=== PATIENT | female | born 1940 | race Caucasian/White ===

== ENCOUNTER 2018-12-14 04:08 | Inpatient (IN) | payer MEDICARE, MEDICAID ==
[~2018-12-14] VITALS: Ht 152.4 cm; Wt 87.5 kg
[2018-12-14] MEDS ORDERED: IPRATROPIUM BROMIDE (0.02%) 0.5MG/2.5ML NEB HHN STA (06:55)
[2018-12-14] MEDS ORDERED: ALBUTEROL (0.083%) 2.5MG/3ML NEB HHN STA (06:55)
[2018-12-14] MEDS ORDERED: METHYLPREDNISOLONE SOD SUCC 125 MG/2 ML VIAL IV STA (06:55)
[2018-12-14] MEDS ORDERED: NITROGLYCERIN OINT 1GM/INCH UDPKT TD ONE (07:00)
[2018-12-14] MEDS ORDERED: FUROSEMIDE 40MG/4ML VIAL IV ONE (07:00)
[2018-12-14 07:12] LABS: EOSINOPHILS % 0.3 % (0.0-5.0); HEMATOCRIT. 28.7 % (36.0-48.0); HEMOGLOBIN. 9.4 g/dL (12.0-16.0); MEAN CORPUSCULAR HEMOGLOBIN 28.8 pg (28.0-32.0); MEAN CORPUSCULAR VOLUME 87.9 fL (81.0-99.0); MEAN PLATELET VOLUME 7.6 fl (7.4-10.4); MONOCYTES % 5.1 % (2.0-8.0); NEUTROPHILS % 83.6 % (40.0-76.0); PLATELET 493 x1000/uL (130-400); RED BLOOD CELL COUNT 3.27 mill/uL (4.2-5.4); RED CELL DISTRIBUTION WIDTH 16.8 % (11.6-14.6)
[2018-12-14 07:13] LABS: CHLORIDE 102 mEq/L (98-107)
[2018-12-14 07:16] LABS: INR 1.1; PROTHROMBIN TIME 11.3 sec (9.6-11.0)
[2018-12-14] MEDS ORDERED: POTASSIUM CHLORIDE 20MEQ TABLET SR PO ONE (07:45)
[2018-12-14] MEDS ORDERED: ONDANSETRON HCL 4MG/2ML INJ IV PRN (09:30)
[2018-12-14] MEDS ORDERED: DEXTROSE 50% WATER 50ML SYRINGE IV PRN (09:30)
[2018-12-14] MEDS ORDERED: ACETAMINOPHEN 325MG TABLET PO PRN (09:30)
[2018-12-14 10:18] LABS: CLARITY URINE CLOUDY (CLEAR); COLOR URINE YELLOW (YELLOW); KETONES URINE NEGATIVE (NEGATIVE); LEUKOCYTE ESTERASE URINE NEGATIVE (NEGATIVE); NITRITE URINE NEGATIVE (NEGATIVE); OCCULT BLOOD URINE 1+ (NEGATIVE); PH URINE 7.5 (4.5-8.0); PROTEIN URINE 4+ (NEGATIVE); SPECIFIC GRAVITY URINE 1.017 (1.005-1.030)
[2018-12-14 12:00] VITALS: BP_SYST 117; BP_SYST 143; BP_DIAS 50; BP_DIAS 84
[2018-12-14] MEDS: BLOOD SUGAR DIAGNOSTIC STRIP TEST SCH ×3 (12:20→21:17)
[2018-12-14] MEDS: INSULIN LISPRO 100 UNITS/ML SUBCUT SCH ×3 (14:00→21:16)
[2018-12-14] MEDS: ENOXAPARIN 40MG/0.4ML SYR SUBCUT SCH (14:32)
[2018-12-14] MEDS: LOSARTAN POTASSIUM 50 MG TABLET PO SCH (14:32)
[2018-12-14] MEDS: FUROSEMIDE 40MG/4ML VIAL IVP SCH ×2 (14:32→17:40)
[2018-12-14 16:00] VITALS: BP 183/75
[2018-12-14] MEDS ORDERED: METF-414 PO (17:01)
[2018-12-14] MEDS ORDERED: LISI10TA5 PO (17:02)
[2018-12-14 20:00] VITALS: BP 177/70
[2018-12-14] MEDS: CLONIDINE 0.1MG TABLET PO PRN (21:17)
[2018-12-15] VITALS: BP 162/71
[2018-12-15] MEDS: IPRATROPIUM/ALBUTEROL 0.5-3(2.5)MG/3ML NEB HHN PRN ×3 (03:55→12:22)
[2018-12-15 04:00] VITALS: BP 187/82
[2018-12-15] MEDS: BLOOD SUGAR DIAGNOSTIC STRIP TEST SCH ×4 (06:17→21:34)
[2018-12-15] MEDS: INSULIN LISPRO 100 UNITS/ML SUBCUT SCH ×4 (06:24→21:53)
[2018-12-15] MEDS: CLONIDINE 0.1MG TABLET PO PRN (06:24)
[2018-12-15] MEDS: FUROSEMIDE 40MG/4ML VIAL IVP SCH (06:43)
[2018-12-15 06:58] LABS: BASOPHILS % 0.2 % (0.0-2.0); HEMATOCRIT. 25.1 % (36.0-48.0); HEMOGLOBIN. 8.4 g/dL (12.0-16.0); LYMPHOCYTES % 7.1 % (20.0-50.0); MEAN CORPUSCULAR HEMOGLOBIN 29.3 pg (28.0-32.0); MEAN CORPUSCULAR VOLUME 87.4 fL (81.0-99.0); MEAN PLATELET VOLUME 7.8 fl (7.4-10.4); MONOCYTES % 5.4 % (2.0-8.0); NEUTROPHILS % 87.3 % (40.0-76.0); PLATELET 450 x1000/uL (130-400); RED BLOOD CELL COUNT 2.87 mill/uL (4.2-5.4); RED CELL DISTRIBUTION WIDTH 16.9 % (11.6-14.6)
[2018-12-15 07:29] LABS: CHLORIDE 102 mEq/L (98-107)
[2018-12-15 08:00] VITALS: BP 129/58
[2018-12-15] MEDS: POTASSIUM CHLORIDE 20MEQ TABLET SR PO SCH (08:28)
[2018-12-15] MEDS: LOSARTAN POTASSIUM 50 MG TABLET PO SCH ×2 (08:28→17:36)
[2018-12-15] MEDS ORDERED: POTASSIUM CHLORIDE 20MEQ TABLET SR PO SCH (10:45)
[2018-12-15 12:00] VITALS: BP 168/63
[2018-12-15] MEDS ORDERED: CEFTRIAXONE 1 G PREMIX 50 ML IV SCH (13:00)
[2018-12-15] MEDS: METHYLPREDNISOLONE SOD SUCC 40 MG/ML VIAL IV SCH ×2 (14:35→21:33)
[2018-12-15] MEDS: ENOXAPARIN 40MG/0.4ML SYR SUBCUT SCH (14:36)
[2018-12-15 16:00] VITALS: BP 158/62
[2018-12-15] MEDS: IPRATROPIUM/ALBUTEROL 0.5-3(2.5)MG/3ML NEB HHN SCH ×2 (16:28→20:13)
[2018-12-15] MEDS: AMLODIPINE 5MG TABLET PO SCH (17:36)
[2018-12-15 20:00] VITALS: BP 157/73
[2018-12-15] MEDS: INSULIN GLARGINE UD 100 UNITS/ML SYR SUBCUT SCH (21:55)
[2018-12-16] VITALS: BP 153/68
[2018-12-16] MEDS: IPRATROPIUM/ALBUTEROL 0.5-3(2.5)MG/3ML NEB HHN SCH ×4 (00:31→12:55)
[2018-12-16 04:00] VITALS: BP 157/62
[2018-12-16] MEDS: METHYLPREDNISOLONE SOD SUCC 40 MG/ML VIAL IV SCH (05:49)
[2018-12-16] MEDS: BLOOD SUGAR DIAGNOSTIC STRIP TEST SCH ×2 (06:43→12:20)
[2018-12-16 06:49] LABS: CHLORIDE 101 mEq/L (98-107)
[2018-12-16 06:53] LABS: HEMATOCRIT. 24.6 % (36.0-48.0); HEMOGLOBIN. 8.3 g/dL (12.0-16.0); MEAN CORPUSCULAR HEMOGLOBIN 29.5 pg (28.0-32.0); MEAN CORPUSCULAR VOLUME 87.7 fL (81.0-99.0); MEAN PLATELET VOLUME 7.6 fl (7.4-10.4); PLATELET 481 x1000/uL (130-400); RED BLOOD CELL COUNT 2.81 mill/uL (4.2-5.4); RED CELL DISTRIBUTION WIDTH 16.7 % (11.6-14.6)
[2018-12-16 08:52] VITALS: BP 164/69
[2018-12-16] MEDS ORDERED: FUROSEMIDE 40MG/4ML VIAL IVP SCH (09:00)
[2018-12-16] MEDS: POTASSIUM CHLORIDE 20MEQ TABLET SR PO SCH (09:50)
[2018-12-16] MEDS: LOSARTAN POTASSIUM 50 MG TABLET PO SCH (09:50)
[2018-12-16] MEDS: AMLODIPINE 5MG TABLET PO SCH (09:50)
[2018-12-16] MEDS: INSULIN LISPRO 100 UNITS/ML SUBCUT SCH ×2 (09:51→13:12)
[2018-12-16 12:37] VITALS: BP 160/71
[2018-12-16 12:38] VITALS: BP 160/71
[2018-12-16] MEDS ORDERED: POTASSIUM CHLORIDE 20MEQ TABLET SR PO NR (13:00)
[2018-12-16] MEDS: INSULIN GLARGINE UD 100 UNITS/ML SYR SUBCUT SCH (13:11)
[2018-12-16 19:21] LABS: PLATELET ESTIMATE INCREASED
== END 2018-12-16 14:46 | disposition home or self-care (01) | DRG 871 ==
LOC: ER 04:08 → EDBEDREQ 07:53 → EDBD 07:55 → 6WST 07:55 → EDBEDREQ 07:58 → ENRESERV 09:46
PROVIDERS: ADMIT Internal Medicine; ATTEND Internal Medicine
DX: A41.9 Sepsis, unspecified organism (principal); E43 Unspecified severe protein-calorie malnutrition; I50.43 Acute on chronic combined systolic (congestive) and diastolic (congestive) heart failure; E87.1 Hypo-osmolality and hyponatremia; N39.0 Urinary tract infection, site not specified; I11.0 Hypertensive heart disease with heart failure; E87.6 Hypokalemia; E11.9 Type 2 diabetes mellitus without complications; D64.9 Anemia, unspecified; R06.03 Acute respiratory distress; B96.89 Other specified bacterial agents as the cause of diseases classified elsewhere; E66.9 Obesity, unspecified; J06.9 Acute upper respiratory infection, unspecified; Z79.4 Long term (current) use of insulin; Z87.442 Personal history of urinary calculi; Z79.899 Other long term (current) drug therapy; Z91.14 Patient's other noncompliance with medication regimen; Z68.37 Body mass index [BMI] 37.0-37.9, adult
CPT/HCPCS: 36415; 71045; 80048; 80061; 82962; 83605; 83880; 84443; 84484; 87077; 87186; 93005; 93306; 94640; 96374; 96375; 97162; 97535; 99285; J0696; J1650; J1815; J1940; J2920; J2930; J7050; J7611; J7620

== ENCOUNTER 2020-08-18 03:32 | Inpatient (IN) | payer MEDICARE, MEDICAID ==
[~2020-08-18] VITALS: Ht 157.5 cm; Wt 65.8 kg
[~2020-08-18 03:32] MED LIST: METF-414 PO
[2020-08-18] MEDS ORDERED: ONDANSETRON HCL 4MG/2ML INJ IV ONE (04:15)
[2020-08-18] MEDS ORDERED: CALCIUM GLUCONATE 100MG/ML 10ML VIAL IV ONE (04:15)
[2020-08-18 04:30] LABS: BASOPHILS % 0.8 % (0.0-2.0); EOSINOPHILS % 3.3 % (0.0-5.0); HEMATOCRIT. 21.3 % (36.0-48.0); HEMOGLOBIN. 7.1 g/dL (12.0-16.0); LYMPHOCYTES % 43.1 % (20.0-50.0); MONOCYTES % 6.9 % (2.0-8.0); NEUTROPHILS % 45.9 % (40.0-76.0); PLATELET 277 x1000/uL (130-400); RED BLOOD CELL COUNT 2.45 mill/uL (4.2-5.4); RED CELL DISTRIBUTION WIDTH 14.6 % (11.6-14.6)
[2020-08-18 04:32] LABS: CHLORIDE 107 mEq/L (98-107)
[2020-08-18] MEDS ORDERED: LOSA100T3 PO (09:11)
[2020-08-18] MEDS ORDERED: SITA1TAB6 PO (09:11)
[2020-08-18] MEDS ORDERED: SIMV-46 PO (09:11)
[2020-08-18] MEDS ORDERED: LISI10TA5 PO (09:11)
[2020-08-18] MEDS ORDERED: NEBI20TA2 PO (09:11)
[2020-08-18] MEDS ORDERED: GLIP10TA10 PO (09:11)
[2020-08-18] MEDS ORDERED: FURO-151 PO (09:11)
[2020-08-18] MEDS ORDERED: SODIUM CHLORIDE 0.45% 1,000 ML IV SCH (11:00)
[2020-08-18] MEDS ORDERED: DIPHENHYDRAMINE 50MG/ML VIAL IV PRN (11:00)
[2020-08-18] MEDS ORDERED: MAGNESIUM/ALUMINUM HYDROXIDE/SIMETHICONE 30ML UDC PO PRN (11:00)
[2020-08-18] MEDS ORDERED: ACETAMINOPHEN 650MG SUPP PR PRN (11:00)
[2020-08-18] MEDS ORDERED: ACETAMINOPHEN 325MG TABLET PO PRN (11:00)
[2020-08-18] MEDS ORDERED: IPRATROPIUM/ALBUTEROL 0.5-3(2.5)MG/3ML NEB NEB PRN (11:00)
[2020-08-18] MEDS ORDERED: CLONIDINE 0.1MG TABLET PO PRN (11:00)
[2020-08-18] MEDS ORDERED: DOCUSATE SODIUM 100MG CAPSULE PO PRN (11:00)
[2020-08-18] MEDS ORDERED: GUAIFENESIN 200MG/10ML SUGAR FREE UDC PO PRN (11:00)
[2020-08-18] MEDS ORDERED: NA PHOS,M-B/NA PHOS,DI-BA ENEMA 118ML PR PRN (11:00)
[2020-08-18] MEDS ORDERED: DEXTROSE 50% WATER 50ML SYRINGE IV PRN (11:00)
[2020-08-18] MEDS ORDERED: LORAZEPAM 0.5MG TABLET PO PRN (11:00)
[2020-08-18] MEDS ORDERED: HYDROCODONE/ACETAMINOPHEN 5/325MG TABLET PO PRN (11:00)
[2020-08-18] MEDS ORDERED: ONDANSETRON HCL 4MG/2ML INJ IV PRN (11:00)
[2020-08-18] MEDS: PANTOPRAZOLE SODIUM 40 MG/VIAL IV SCH (12:00)
[2020-08-18 12:44] LABS: HEMATOCRIT 20.6 % (36.0-48.0); HEMOGLOBIN 6.6 g/dL (12.0-16.0)
[2020-08-18] MEDS: BLOOD SUGAR DIAGNOSTIC STRIP TEST SCH ×3 (13:40→21:00)
[2020-08-18] MEDS: INSULIN LISPRO 100 UNITS/ML SUBCUT SCH ×3 (13:56→21:00)
[2020-08-18] MEDS: DEXT 5%/0.45% NACL 1000ML 1,000 ML IV SCH (14:00)
[2020-08-18 14:38] LABS: TOTAL IRON BINDING CAPACITY 355 ug/dL (250-450)
[2020-08-18] MEDS: LOSARTAN POTASSIUM 50 MG TABLET PO SCH (16:43)
[2020-08-18] MEDS: FUROSEMIDE 40MG/4ML VIAL IVP SCH (16:43)
[2020-08-18 17:41] LABS: BASOPHILS % 0.6 % (0.0-2.0); EOSINOPHILS % 1.9 % (0.0-5.0); HEMATOCRIT. 24.3 % (36.0-48.0); MEAN CORPUSCULAR HEMOGLOBIN 27.9 pg (28.0-32.0); MEAN CORPUSCULAR VOLUME 84.3 fL (81.0-99.0); MEAN PLATELET VOLUME 8.5 fl (7.4-10.4); NEUTROPHILS % 62.5 % (40.0-76.0); PLATELET 260 x1000/uL (130-400); RED BLOOD CELL COUNT 2.88 mill/uL (4.2-5.4); RED CELL DISTRIBUTION WIDTH 15.9 % (11.6-14.6)
[2020-08-18 20:47] LABS: HEMATOCRIT 24.8 % (36.0-48.0); HEMOGLOBIN 8.5 g/dL (12.0-16.0)
[2020-08-18] MEDS: ATORVASTATIN CALCIUM 20MG TABLET PO SCH (21:00)
[2020-08-18 23:04] LABS: HEMATOCRIT 24.8 % (36.0-48.0); HEMOGLOBIN 8.4 g/dL (12.0-16.0)
[2020-08-19] VITALS (11 sets, daily range): BP systolic 115–186; BP diastolic 40–69
[2020-08-19] MEDS: HYDRALAZINE 20MG/ML VIAL IV PRN ×2 (01:34→21:36)
[2020-08-19] MEDS: DEXT 5%/0.45% NACL 1000ML 1,000 ML IV SCH ×2 (05:55→21:50)
[2020-08-19] MEDS: INSULIN LISPRO 100 UNITS/ML SUBCUT SCH ×4 (06:43→21:00)
[2020-08-19] MEDS: BLOOD SUGAR DIAGNOSTIC STRIP TEST SCH ×4 (06:43→21:37)
[2020-08-19 07:10] LABS: BASOPHILS % 0.8 % (0.0-2.0); EOSINOPHILS % 3.2 % (0.0-5.0); HEMATOCRIT. 22.3 % (36.0-48.0); HEMOGLOBIN. 7.5 g/dL (12.0-16.0); LYMPHOCYTES % 31.2 % (20.0-50.0); MEAN CORPUSCULAR HEMOGLOBIN 28.1 pg (28.0-32.0); MEAN CORPUSCULAR VOLUME 83.2 fL (81.0-99.0); MEAN PLATELET VOLUME 9.1 fl (7.4-10.4); MONOCYTES % 7.7 % (2.0-8.0); NEUTROPHILS % 57.1 % (40.0-76.0); PLATELET 247 x1000/uL (130-400); RED BLOOD CELL COUNT 2.68 mill/uL (4.2-5.4); RED CELL DISTRIBUTION WIDTH 16.3 % (11.6-14.6)
[2020-08-19 07:22] LABS: CHLORIDE 110 mEq/L (98-107)
[2020-08-19 07:31] LABS: LDL CHOLESTEROL 50 mg/dL (5-100)
[2020-08-19 07:32] LABS: T4 FREE 0.97 ng/dL (0.76-1.46)
[2020-08-19 07:35] LABS: HDL CHOLESTEROL 61 mg/dL (40-59)
[2020-08-19] MEDS: PANTOPRAZOLE SODIUM 40 MG/VIAL IV SCH ×2 (08:34→21:36)
[2020-08-19] MEDS: FUROSEMIDE 40MG/4ML VIAL IVP SCH (08:34)
[2020-08-19] MEDS: LOSARTAN POTASSIUM 50 MG TABLET PO SCH (08:35)
[2020-08-19] MEDS ORDERED: LOSARTAN POTASSIUM 50 MG TABLET PO SCH (10:00)
[2020-08-19] MEDS: AMLODIPINE 5MG TABLET PO SCH (10:00)
[2020-08-19] MEDS: IRON SUCROSE COMPLEX 100 MG/5 ML ML IV SCH (15:47)
[2020-08-19] MEDS ORDERED: SORBITOL 70% SOLN 30ML PO SCH ×2 (16:00→20:00)
[2020-08-19] MEDS ORDERED: CEFTRIAXONE 1,000 MG in DEXTROSE 5% WATER 50 ML IV SCH (19:00)
[2020-08-19 19:32] LABS: HEMATOCRIT 33.9 % (36.0-48.0); HEMOGLOBIN 11.3 g/dL (12.0-16.0)
[2020-08-19 19:46] LABS: PROTHROMBIN TIME 10.6 sec (9.6-11.0)
[2020-08-19] MEDS: ATORVASTATIN CALCIUM 20MG TABLET PO SCH (21:36)
[2020-08-20] VITALS: BP 111/31
[2020-08-20 04:00] VITALS: BP 111/34
[2020-08-20] MEDS: BLOOD SUGAR DIAGNOSTIC STRIP TEST SCH ×4 (06:20→21:00)
[2020-08-20] MEDS: INSULIN LISPRO 100 UNITS/ML SUBCUT SCH ×4 (06:20→21:00)
[2020-08-20 08:00] VITALS: BP 130/77
[2020-08-20 08:33] LABS: CLARITY URINE CLOUDY (CLEAR); COLOR URINE YELLOW (YELLOW); KETONES URINE NEGATIVE (NEGATIVE); LEUKOCYTE ESTERASE URINE 2+ (NEGATIVE); NITRITE URINE NEGATIVE (NEGATIVE); OCCULT BLOOD URINE NEGATIVE (NEGATIVE); PROTEIN URINE 3+ (NEGATIVE); SPECIFIC GRAVITY URINE 1.019 (1.005-1.030); UROBILINOGEN URINE 0.2 E.U./dL (0.2-1.0)
[2020-08-20] MEDS: IRON SUCROSE COMPLEX 100 MG/5 ML ML IV SCH (09:00)
[2020-08-20] MEDS: AMLODIPINE 5MG TABLET PO SCH (09:00)
[2020-08-20] MEDS: FUROSEMIDE 40MG/4ML VIAL IVP SCH (09:54)
[2020-08-20] MEDS: PANTOPRAZOLE SODIUM 40 MG/VIAL IV SCH ×2 (09:55→22:17)
[2020-08-20 11:35] LABS: BASOPHILS % 0.8 % (0.0-2.0); EOSINOPHILS % 0.8 % (0.0-5.0); HEMATOCRIT. 31.4 % (36.0-48.0); HEMOGLOBIN. 10.5 g/dL (12.0-16.0); LYMPHOCYTES % 24.6 % (20.0-50.0); MEAN CORPUSCULAR HEMOGLOBIN 28.6 pg (28.0-32.0); MEAN CORPUSCULAR VOLUME 85.3 fL (81.0-99.0); MEAN PLATELET VOLUME 9.3 fl (7.4-10.4); MONOCYTES % 7.3 % (2.0-8.0); NEUTROPHILS % 66.5 % (40.0-76.0); PLATELET 253 x1000/uL (130-400); RED BLOOD CELL COUNT 3.68 mill/uL (4.2-5.4); RED CELL DISTRIBUTION WIDTH 15.8 % (11.6-14.6)
[2020-08-20 11:39] LABS: PARTIAL THROMBOPLASTIN TIME 32.3 sec (23.4-31.0); PROTHROMBIN TIME 10.7 sec (9.6-11.0)
[2020-08-20] MEDS ORDERED: FENTANYL CITRATE/PF 50MCG/ML 2ML VIAL ONE (11:48)
[2020-08-20] MEDS ORDERED: MIDAZOLAM HCL 5 MG/5 ML VIAL ONE (11:48)
[2020-08-20] MEDS ORDERED: MIDAZOLAM HCL 5 MG/5 ML VIAL IV PRN (11:48)
[2020-08-20 15:00] VITALS: BP 150/58
[2020-08-20] MEDS: DEXTROSE 5% WATER 1,000 ML IV SCH (16:15)
[2020-08-20 17:26] LABS: CHLORIDE 116 mEq/L (98-107)
[2020-08-20 17:34] LABS: HEMATOCRIT 29.3 % (36.0-48.0); HEMOGLOBIN 9.9 g/dL (12.0-16.0); MEAN CORPUSCULAR HEMOGLOBIN 28.7 pg (28.0-32.0); MEAN CORPUSCULAR VOLUME 85.3 fL (81.0-99.0); PLATELET 249 x1000/uL (130-400); RED BLOOD CELL COUNT 3.44 mill/uL (4.2-5.4)
[2020-08-20 20:00] VITALS: BP 163/49
[2020-08-20] MEDS ORDERED: CEFTRIAXONE 1,000 MG in DEXTROSE 5% WATER 50 ML IV SCH (21:00)
[2020-08-20] MEDS: HYDRALAZINE 20MG/ML VIAL IV PRN (22:17)
[2020-08-20] MEDS: ATORVASTATIN CALCIUM 20MG TABLET PO SCH (22:17)
[2020-08-21] VITALS: BP 142/42
[2020-08-21 04:00] VITALS: BP 123/56
[2020-08-21] MEDS: BLOOD SUGAR DIAGNOSTIC STRIP TEST SCH ×2 (06:27→11:45)
[2020-08-21] MEDS: INSULIN LISPRO 100 UNITS/ML SUBCUT SCH ×2 (06:29→14:40)
[2020-08-21 06:48] LABS: BASOPHILS % 0.6 % (0.0-2.0); EOSINOPHILS % 3.1 % (0.0-5.0); HEMATOCRIT. 27.9 % (36.0-48.0); HEMOGLOBIN. 9.5 g/dL (12.0-16.0); LYMPHOCYTES % 29.8 % (20.0-50.0); MEAN CORPUSCULAR HEMOGLOBIN 29.1 pg (28.0-32.0); MEAN CORPUSCULAR VOLUME 84.9 fL (81.0-99.0); MEAN PLATELET VOLUME 9.2 fl (7.4-10.4); MONOCYTES % 10.8 % (2.0-8.0); NEUTROPHILS % 55.7 % (40.0-76.0); PLATELET 226 x1000/uL (130-400); RED BLOOD CELL COUNT 3.28 mill/uL (4.2-5.4); RED CELL DISTRIBUTION WIDTH 15.6 % (11.6-14.6)
[2020-08-21 08:00] VITALS: BP 154/45
[2020-08-21] MEDS: IRON SUCROSE COMPLEX 100 MG/5 ML ML IV SCH (10:10)
[2020-08-21] MEDS: AMLODIPINE 5MG TABLET PO SCH (10:11)
[2020-08-21] MEDS: FUROSEMIDE 40MG/4ML VIAL IVP SCH (10:11)
[2020-08-21] MEDS: PANTOPRAZOLE SODIUM 40 MG/VIAL IV SCH (10:11)
[2020-08-21] MEDS: DEXTROSE 5% WATER 1,000 ML IV SCH (10:11)
[2020-08-21 12:00] VITALS: BP 161/57
[2020-08-21] MEDS ORDERED: CEPH250C2 MT (14:55)
[2020-08-21 15:10] VITALS: BP 161/57
== END 2020-08-21 16:34 | disposition home or self-care (01) | DRG 73 ==
LOC: ER 03:32 → SUPCPDRO 10:48 → ENRESERV 20:39 → 5WST 08-19 00:25
PROVIDERS: ADMIT Internal Medicine; ATTEND Internal Medicine
PROC: 30233N1 Transfusion of Nonautologous Red Blood Cells into Peripheral Vein, Percutaneous Approach (ICD-10-PCS; principal; 2020-08-19)
PROC: 0DB68ZX Excision of Stomach, Via Natural or Artificial Opening Endoscopic, Diagnostic (ICD-10-PCS; 2020-08-20)
PROC: 0DBK8ZX Excision of Ascending Colon, Via Natural or Artificial Opening Endoscopic, Diagnostic (ICD-10-PCS; 2020-08-20)
DX: G90.8 Other disorders of autonomic nervous system (principal); K29.71 Gastritis, unspecified, with bleeding; K63.3 Ulcer of intestine; N39.0 Urinary tract infection, site not specified; I50.32 Chronic diastolic (congestive) heart failure; N17.9 Acute kidney failure, unspecified; E11.65 Type 2 diabetes mellitus with hyperglycemia; E11.649 Type 2 diabetes mellitus with hypoglycemia without coma; D12.5 Benign neoplasm of sigmoid colon; E86.0 Dehydration; I11.0 Hypertensive heart disease with heart failure; K64.8 Other hemorrhoids; K44.9 Diaphragmatic hernia without obstruction or gangrene; D50.9 Iron deficiency anemia, unspecified; E78.5 Hyperlipidemia, unspecified; I25.10 Atherosclerotic heart disease of native coronary artery without angina pectoris; M43.17 Spondylolisthesis, lumbosacral region; R00.1 Bradycardia, unspecified; K80.20 Calculus of gallbladder without cholecystitis without obstruction; I35.0 Nonrheumatic aortic (valve) stenosis; I34.0 Nonrheumatic mitral (valve) insufficiency; Z79.84 Long term (current) use of oral hypoglycemic drugs; Z79.899 Other long term (current) drug therapy; Z87.442 Personal history of urinary calculi; R19.09 Other intra-abdominal and pelvic swelling, mass and lump
CPT/HCPCS: 36415; 71045; 74176; 80048; 80053; 80061; 81003; 82378; 82728; 82962; 83036; 83540; 83550; 83735; 83880; 84439; 84443; 84484; 85014; 85018; 85025; 85027; 85044; 85384; 86850; 86900; 86920; 87077; 87186; 87426; 88305; 88313; 93005; 93306; 93880; 93970; 97116; 97162; 99152; 99291; C9113; J0360; J0610; J0696; J1815; J1940; J2250; J2405; J3010; J7060; J7070; P9016; G0500

== ENCOUNTER 2020-09-05 07:08 | Inpatient (IN) | payer MEDICARE, MEDICAID ==
[~2020-09-05] VITALS: Ht 165.1 cm; Wt 77.7 kg
[~2020-09-05 07:08] MED LIST changes: +CEPH250C2 MT; +FURO-151 PO; +GLIP10TA10 PO; +LOSA100T3 PO; +NEBI20TA2 PO; +SIMV-46 PO; +SITA1TAB6 PO
[2020-09-05 08:22] LABS: CHLORIDE 108 mEq/L (98-107)
[2020-09-05 08:27] LABS: CLARITY URINE CLEAR (CLEAR); COLOR URINE YELLOW (YELLOW); KETONES URINE NEGATIVE (NEGATIVE); LEUKOCYTE ESTERASE URINE 1+ (NEGATIVE); NITRITE URINE NEGATIVE (NEGATIVE); OCCULT BLOOD URINE TRACE (NEGATIVE); PROTEIN URINE 3+ (NEGATIVE); SPECIFIC GRAVITY URINE 1.012 (1.005-1.030); UROBILINOGEN URINE 0.2 E.U./dL (0.2-1.0)
[2020-09-05 08:40] LABS: BASOPHILS % 0.5 % (0.0-2.0); EOSINOPHILS % 0.8 % (0.0-5.0); HEMATOCRIT. 27.5 % (36.0-48.0); LYMPHOCYTES % 14.4 % (20.0-50.0); MEAN CORPUSCULAR HEMOGLOBIN 28.4 pg (28.0-32.0); MEAN CORPUSCULAR VOLUME 86.6 fL (81.0-99.0); MEAN PLATELET VOLUME 9.1 fl (7.4-10.4); MONOCYTES % 7.2 % (2.0-8.0); NEUTROPHILS % 77.1 % (40.0-76.0); PLATELET 211 x1000/uL (130-400); RED BLOOD CELL COUNT 3.17 mill/uL (4.2-5.4); RED CELL DISTRIBUTION WIDTH 16.3 % (11.6-14.6)
[2020-09-05] MEDS ORDERED: CEFTRIAXONE 1 G PREMIX 50 ML IV ONE (09:00)
[2020-09-05] MEDS ORDERED: DEXT 5%/0.9% NACL 500 ML IV ONE (10:30)
[2020-09-05] MEDS: NIFEDIPINE XL 30MG TAB PO SCH (14:48)
[2020-09-05] MEDS ORDERED: ACETAMINOPHEN 650MG/20.3ML UDC GT PRN (16:00)
[2020-09-05] MEDS ORDERED: ONDANSETRON HCL 4MG/2ML INJ IV PRN (16:00)
[2020-09-05] MEDS: LISINOPRIL 10MG TABLET PO SCH (16:34)
[2020-09-05] MEDS: ENOXAPARIN 30MG/0.3ML SYR SUBCUT SCH (16:35)
[2020-09-05] MEDS: ATORVASTATIN CALCIUM 20MG TABLET PO SCH (21:15)
[2020-09-06 00:30] LABS: CREATINE KINASE 92 IU/L (26-192)
[2020-09-06 00:31] LABS: CREATINE KINASE MB FRACTION 1.5 ng/mL (0.5-3.6)
[2020-09-06 03:05] VITALS: BP 96/68
[2020-09-06 06:15] LABS: BASOPHILS % 0.8 % (0.0-2.0); EOSINOPHILS % 1.4 % (0.0-5.0); HEMATOCRIT. 25.6 % (36.0-48.0); HEMOGLOBIN. 8.6 g/dL (12.0-16.0); LYMPHOCYTES % 38.5 % (20.0-50.0); MEAN CORPUSCULAR HEMOGLOBIN 29.2 pg (28.0-32.0); MEAN CORPUSCULAR VOLUME 86.6 fL (81.0-99.0); MEAN PLATELET VOLUME 9.5 fl (7.4-10.4); MONOCYTES % 10.1 % (2.0-8.0); NEUTROPHILS % 49.2 % (40.0-76.0); PLATELET 201 x1000/uL (130-400); RED BLOOD CELL COUNT 2.95 mill/uL (4.2-5.4); RED CELL DISTRIBUTION WIDTH 16.4 % (11.6-14.6)
[2020-09-06 07:26] LABS: CHLORIDE 110 mEq/L (98-107)
[2020-09-06 07:35] LABS: CREATINE KINASE 95 IU/L (26-192)
[2020-09-06 07:37] LABS: CREATINE KINASE MB FRACTION 1.8 ng/mL (0.5-3.6)
[2020-09-06 08:00] VITALS: BP 111/39
[2020-09-06] MEDS: LISINOPRIL 10MG TABLET PO SCH (09:00)
[2020-09-06] MEDS: NIFEDIPINE XL 30MG TAB PO SCH (09:00)
[2020-09-06] MEDS ORDERED: CEFTRIAXONE 1 G PREMIX 50 ML IV SCH (09:00)
[2020-09-06] MEDS: CEFTRIAXONE 1,000 MG in DEXTROSE 5% WATER 50 ML IV SCH (09:39)
[2020-09-06 12:00] VITALS: BP 128/78
[2020-09-06 16:00] VITALS: BP 160/54
[2020-09-06] MEDS: ENOXAPARIN 30MG/0.3ML SYR SUBCUT SCH (18:35)
[2020-09-06 20:00] VITALS: BP 148/66
[2020-09-06] MEDS: ATORVASTATIN CALCIUM 20MG TABLET PO SCH (21:46)
[2020-09-07] VITALS: BP 138/60
[2020-09-07 04:00] VITALS: BP 155/80
[2020-09-07 08:00] VITALS: BP 137/38
[2020-09-07] MEDS: NIFEDIPINE XL 30MG TAB PO SCH (08:07)
[2020-09-07] MEDS: CEFTRIAXONE 1,000 MG in DEXTROSE 5% WATER 50 ML IV SCH (08:29)
[2020-09-07] MEDS ORDERED: LIDOCAINE HCL/PF 1% 2ML VIAL ONE (10:00)
[2020-09-07] MEDS ORDERED: DEXTROSE 50% WATER 50ML SYRINGE IV PRN (10:45)
[2020-09-07] MEDS: BLOOD SUGAR DIAGNOSTIC STRIP TEST SCH ×3 (11:40→20:59)
[2020-09-07 12:00] VITALS: BP 137/42
[2020-09-07] MEDS: INSULIN LISPRO 100 UNITS/ML SUBCUT SCH ×3 (12:00→20:59)
[2020-09-07 12:37] LABS: BG BASE EXCESS -4.3 mmol/L (-2.0-2.0); BG CARBOXYHEMOGLOBIN 0.3 % (0.5-1.5); BG DEOXYHEMOGLOBIN 4.5 % (0.0-5.0); BG FRACTION INSPIRED OXYGEN 21; BG HCO3 ACT 19.8 mmol/L (22.0-26.0); BG METHEMOGLOBIN 0.7 % (0.0-1.5); BG OXYGEN SATURATION 95.5 % (92.0-98.5); BG OXYHEMOGLOBIN 94.5 % (94.0-97.0); BG PCO2 30.6 mmHg (35.0-45.0); BG PH 7.428 (7.350-7.450); BG PO2 84.8 mmHg (75.0-100.0); BG SAMPLE SITE RIGHT RADIAL; BG TOTAL HEMOGLOBIN 5.4 g/dL (12.0-18.0); BG VENT MODE ROOM AIR
[2020-09-07 13:35] LABS: HEMATOCRIT 27.3 % (36.0-48.0); HEMOGLOBIN 9.1 g/dL (12.0-16.0)
[2020-09-07] MEDS: ENOXAPARIN 30MG/0.3ML SYR SUBCUT SCH (15:37)
[2020-09-07 16:00] VITALS: BP 124/50
[2020-09-07 20:00] VITALS: BP 152/53
[2020-09-07] MEDS: ATORVASTATIN CALCIUM 20MG TABLET PO SCH (20:59)
[2020-09-07] MEDS ORDERED: LEVOFLOXACIN 500MG PREMIX 100 ML IV NR (23:00)
[2020-09-08] VITALS: BP 140/77
[2020-09-08 04:00] VITALS: BP 140/66
[2020-09-08] MEDS: BLOOD SUGAR DIAGNOSTIC STRIP TEST SCH ×2 (06:45→11:40)
[2020-09-08 07:05] LABS: BASOPHILS % 0.5 % (0.0-2.0); EOSINOPHILS % 1.2 % (0.0-5.0); HEMATOCRIT. 24.9 % (36.0-48.0); HEMOGLOBIN. 8.4 g/dL (12.0-16.0); LYMPHOCYTES % 32.9 % (20.0-50.0); MEAN CORPUSCULAR HEMOGLOBIN 29.2 pg (28.0-32.0); MEAN CORPUSCULAR VOLUME 86.7 fL (81.0-99.0); MEAN PLATELET VOLUME 9.6 fl (7.4-10.4); MONOCYTES % 9.6 % (2.0-8.0); NEUTROPHILS % 55.8 % (40.0-76.0); PLATELET 204 x1000/uL (130-400); RED BLOOD CELL COUNT 2.87 mill/uL (4.2-5.4); RED CELL DISTRIBUTION WIDTH 16.4 % (11.6-14.6)
[2020-09-08] MEDS: INSULIN LISPRO 100 UNITS/ML SUBCUT SCH ×4 (07:10→22:31)
[2020-09-08 08:00] VITALS: BP 115/38
[2020-09-08] MEDS: NIFEDIPINE XL 30MG TAB PO SCH (08:41)
[2020-09-08 12:00] VITALS: BP 116/45
[2020-09-08 16:00] VITALS: BP 150/38
[2020-09-08] MEDS: ENOXAPARIN 30MG/0.3ML SYR SUBCUT SCH (16:30)
[2020-09-08] MEDS ORDERED: MEROPENEM 500 MG in SODIUM CHLORIDE 0.9% 50 ML IV SCH (17:45)
[2020-09-08 20:00] VITALS: BP 120/34
[2020-09-08] MEDS ORDERED: LEVOFLOXACIN 250MG PREMIX 50 ML IV SCH (21:00)
[2020-09-08] MEDS: MEROPENEM 500MG in NORMAL SALINE 50ML IV SCH (22:31)
[2020-09-08] MEDS: ATORVASTATIN CALCIUM 20MG TABLET PO SCH (22:31)
[2020-09-09 00:09] VITALS: BP 149/51
[2020-09-09 04:00] VITALS: BP 148/53
[2020-09-09] MEDS: INSULIN LISPRO 100 UNITS/ML SUBCUT SCH ×3 (07:10→17:10)
[2020-09-09 07:21] LABS: BASOPHILS % 0.5 % (0.0-2.0); EOSINOPHILS % 0.6 % (0.0-5.0); HEMOGLOBIN. 8.5 g/dL (12.0-16.0); LYMPHOCYTES % 31.7 % (20.0-50.0); MEAN CORPUSCULAR HEMOGLOBIN 28.9 pg (28.0-32.0); MEAN CORPUSCULAR VOLUME 87.7 fL (81.0-99.0); MEAN PLATELET VOLUME 9.5 fl (7.4-10.4); MONOCYTES % 9.1 % (2.0-8.0); NEUTROPHILS % 58.1 % (40.0-76.0); PLATELET 193 x1000/uL (130-400); RED BLOOD CELL COUNT 2.96 mill/uL (4.2-5.4); RED CELL DISTRIBUTION WIDTH 16.5 % (11.6-14.6)
[2020-09-09 08:00] VITALS: BP 164/56
[2020-09-09] MEDS: NIFEDIPINE XL 30MG TAB PO SCH (09:14)
[2020-09-09 12:00] VITALS: BP 158/49
[2020-09-09] MEDS ORDERED: LIDOCAINE HCL 1% 20ML VIAL (Pyxis) INJ ONE (12:56)
[2020-09-09] MEDS: MEROPENEM 500MG in NORMAL SALINE 50ML IV SCH (14:53)
[2020-09-09] MEDS: ENOXAPARIN 30MG/0.3ML SYR SUBCUT SCH (15:43)
[2020-09-09 16:00] VITALS: BP 132/60
[2020-09-09 17:37] VITALS: BP 130/49
[2020-09-09] MEDS ORDERED: HYDRALAZINE HCL 25MG TABLET PO SCH (22:00)
== END 2020-09-09 18:59 | DRG 177 ==
LOC: ER 07:14 → MICUSO 12:07 → ENRESERV 19:15 → CANRESERV 19:15 → 7EST 09-06 01:33
PROVIDERS: ADMIT Internal Medicine; ATTEND Internal Medicine
PROC: 05HY33Z Insertion of Infusion Device into Upper Vein, Percutaneous Approach (ICD-10-PCS; principal; 2020-09-09)
PROC: B54NZZA Ultrasonography of Left Upper Extremity Veins, Guidance (ICD-10-PCS; 2020-09-09)
DX: U07.1 COVID-19 (principal); G93.41 Metabolic encephalopathy; I13.0 Hypertensive heart and chronic kidney disease with heart failure and stage 1 through stage 4 chronic kidney disease, or unspecified chronic kidney disease; I50.32 Chronic diastolic (congestive) heart failure; N17.9 Acute kidney failure, unspecified; N39.0 Urinary tract infection, site not specified; D64.9 Anemia, unspecified; E11.22 Type 2 diabetes mellitus with diabetic chronic kidney disease; T50.995A Adverse effect of other drugs, medicaments and biological substances, initial encounter; E78.5 Hyperlipidemia, unspecified; E11.649 Type 2 diabetes mellitus with hypoglycemia without coma; B96.5 Pseudomonas (aeruginosa) (mallei) (pseudomallei) as the cause of diseases classified elsewhere; I35.0 Nonrheumatic aortic (valve) stenosis; I34.0 Nonrheumatic mitral (valve) insufficiency; N18.9 Chronic kidney disease, unspecified; Z85.038 Personal history of other malignant neoplasm of large intestine; Z87.442 Personal history of urinary calculi; Z79.84 Long term (current) use of oral hypoglycemic drugs; Z79.899 Other long term (current) drug therapy; Y92.89 Other specified places as the place of occurrence of the external cause
CPT/HCPCS: 36415; 36600; 71045; 76937; 80048; 80053; 81003; 82375; 82550; 82553; 82728; 82805; 82947; 82962; 83036; 83735; 84484; 85014; 85018; 85025; 85379; 86140; 87077; 87186; 87426; 87635; 93005; 93970; 96365; 99285; C1725; C1893; J0696; J1650; J1815; J1956; J2185; J3490; J7042; J7060

== ENCOUNTER 2020-11-23 02:31 | Inpatient (IN) | payer MEDICARE, MEDICAID ==
[~2020-11-23] VITALS: Ht 152.4 cm; Wt 73.0 kg
[~2020-11-23 02:31] MED LIST changes: -CEPH250C2 MT; -NEBI20TA2 PO
[2020-11-23] MEDS ORDERED: DEXTROSE 5% WATER 1,000 ML IV ONE (03:15)
[2020-11-23 03:51] LABS: BASOPHILS % 0.9 % (0.0-2.0); EOSINOPHILS % 3.4 % (0.0-5.0); HEMATOCRIT. 33.4 % (36.0-48.0); HEMOGLOBIN. 10.9 g/dL (12.0-16.0); LYMPHOCYTES % 25.8 % (20.0-50.0); MEAN CORPUSCULAR HEMOGLOBIN 29.2 pg (28.0-32.0); MEAN CORPUSCULAR VOLUME 89.3 fL (81.0-99.0); MEAN PLATELET VOLUME 8.4 fl (7.4-10.4); MONOCYTES % 6.3 % (2.0-8.0); NEUTROPHILS % 63.6 % (40.0-76.0); PLATELET 348 x1000/uL (130-400); RED BLOOD CELL COUNT 3.74 mill/uL (4.2-5.4); RED CELL DISTRIBUTION WIDTH 16.8 % (11.6-14.6)
[2020-11-23 03:55] LABS: CHLORIDE 108 mEq/L (98-107)
[2020-11-23 04:01] LABS: CLARITY URINE CLEAR (CLEAR); COLOR URINE YELLOW (YELLOW); KETONES URINE NEGATIVE (NEGATIVE); LEUKOCYTE ESTERASE URINE TRACE (NEGATIVE); NITRITE URINE NEGATIVE (NEGATIVE); OCCULT BLOOD URINE TRACE (NEGATIVE); PH URINE 6.5 (4.5-8.0); PROTEIN URINE 3+ (NEGATIVE); SPECIFIC GRAVITY URINE 1.008 (1.005-1.030); UROBILINOGEN URINE 0.2 E.U./dL (0.2-1.0)
[2020-11-23] MEDS ORDERED: AMLODIPINE 5MG TABLET PO SCH (06:15)
[2020-11-23] MEDS ORDERED: HYDRALAZINE 20MG/ML VIAL IV PRN (09:15)
[2020-11-23 11:00] VITALS: BP 168/62
[2020-11-23 11:15] VITALS: BP 168/62
[2020-11-23] MEDS ORDERED: ONDANSETRON HCL 4MG/2ML INJ IV PRN (11:15)
[2020-11-23] MEDS ORDERED: LOSARTAN POTASSIUM 50 MG TABLET PO SCH (11:15)
[2020-11-23] MEDS ORDERED: ACETAMINOPHEN 325MG TABLET PO PRN (11:15)
[2020-11-23] MEDS: BLOOD SUGAR DIAGNOSTIC STRIP TEST SCH ×3 (12:22→21:00)
[2020-11-23 16:00] VITALS: BP 145/44
[2020-11-23] MEDS ORDERED: DEXTROSE 50% WATER 50ML SYRINGE IV PRN (17:30)
[2020-11-23] MEDS ORDERED: HYDRALAZINE HCL 100MG TABLET PO NR (17:30)
[2020-11-23] MEDS: GABAPENTIN 300MG CAPSULE PO SCH (17:31)
[2020-11-23] MEDS: LOSARTAN POTASSIUM 50 MG TABLET PO SCH (17:32)
[2020-11-23 20:00] VITALS: BP 100/47
[2020-11-23] MEDS ORDERED: ENOXAPARIN 30MG/0.3ML SYR SUBCUT SCH (20:00)
[2020-11-23] MEDS: AMLODIPINE 5MG TABLET PO SCH (21:00)
[2020-11-23] MEDS: INSULIN LISPRO 100 UNITS/ML SUBCUT SCH (21:29)
[2020-11-24] VITALS: BP 160/39
[2020-11-24 04:00] VITALS: BP 126/38
[2020-11-24] MEDS: BLOOD SUGAR DIAGNOSTIC STRIP TEST SCH (06:37)
[2020-11-24] MEDS: INSULIN LISPRO 100 UNITS/ML SUBCUT SCH (06:37)
[2020-11-24 08:00] VITALS: BP 136/50
[2020-11-24] MEDS ORDERED: HYDR100T26 PO (08:17)
[2020-11-24] MEDS ORDERED: HYDRALAZINE HCL 100MG TABLET PO SCH (09:00)
[2020-11-24] MEDS ORDERED: ENOXAPARIN 40MG/0.4ML SYR SUBCUT SCH (09:00)
[2020-11-24] MEDS: LOSARTAN POTASSIUM 50 MG TABLET PO SCH (09:07)
[2020-11-24] MEDS: AMLODIPINE 5MG TABLET PO SCH (09:07)
[2020-11-24] MEDS: GABAPENTIN 300MG CAPSULE PO SCH (09:07)
[2020-11-24 09:53] VITALS: BP 136/50
== END 2020-11-24 11:00 | disposition home or self-care (01) | DRG 637 ==
LOC: ER 02:31 → 5WST 05:09 → ENRESERV 07:59
PROVIDERS: ADMIT Internal Medicine; ATTEND Internal Medicine
DX: E11.649 Type 2 diabetes mellitus with hypoglycemia without coma (principal); G93.41 Metabolic encephalopathy; E44.0 Moderate protein-calorie malnutrition; E78.00 Pure hypercholesterolemia, unspecified; I16.0 Hypertensive urgency; D64.9 Anemia, unspecified; E87.8 Other disorders of electrolyte and fluid balance, not elsewhere classified; E78.5 Hyperlipidemia, unspecified; Z79.84 Long term (current) use of oral hypoglycemic drugs; Z79.899 Other long term (current) drug therapy; Z68.31 Body mass index [BMI] 31.0-31.9, adult; I10 Essential (primary) hypertension
CPT/HCPCS: 36415; 71045; 80053; 81003; 82962; 84484; 85025; 97161; 99285; J0360; J1650; J1815; J7070

== ENCOUNTER 2021-08-29 08:11 | Inpatient (IN) | payer MEDICARE, MEDICAID ==
[~2021-08-29] VITALS: Ht 322.6 cm; Wt 71.7 kg
[~2021-08-29 08:11] MED LIST changes: -GLIP10TA10 PO; +HYDR100T26 PO
[2021-08-29 08:43] LABS: BASOPHILS % 0.8 % (0.0-2.0); EOSINOPHILS % 3.6 % (0.0-5.0); HEMATOCRIT. 27.4 % (36.0-48.0); HEMOGLOBIN. 9.2 g/dL (12.0-16.0); LYMPHOCYTES % 23.5 % (20.0-50.0); MEAN CORPUSCULAR HEMOGLOBIN 30.3 pg (28.0-32.0); MEAN CORPUSCULAR VOLUME 90.1 fL (81.0-99.0); MEAN PLATELET VOLUME 8.8 fl (7.4-10.4); MONOCYTES % 8.9 % (2.0-8.0); NEUTROPHILS % 63.2 % (40.0-76.0); PLATELET 268 x1000/uL (130-400); RED BLOOD CELL COUNT 3.04 mill/uL (4.2-5.4); RED CELL DISTRIBUTION WIDTH 13.9 % (11.6-14.6)
[2021-08-29 08:50] LABS: CHLORIDE 113 mEq/L (98-107)
[2021-08-29] MEDS ORDERED: ACETAMINOPHEN 325MG TABLET PO ONE (09:00)
[2021-08-29] MEDS ORDERED: IPRATROPIUM/ALBUTEROL 0.5-3(2.5)MG/3ML NEB NEB PRN (11:15)
[2021-08-29] MEDS ORDERED: GUAIFENESIN 200MG/10ML SUGAR FREE UDC PO PRN (11:15)
[2021-08-29] MEDS ORDERED: ONDANSETRON HCL 4MG/2ML INJ IV PRN (11:15)
[2021-08-29] MEDS ORDERED: ACETAMINOPHEN 650MG SUPP PR PRN (11:15)
[2021-08-29] MEDS ORDERED: DOCUSATE SODIUM 100MG CAPSULE PO PRN (11:15)
[2021-08-29] MEDS ORDERED: HYDROCODONE/ACETAMINOPHEN 5/325MG TABLET PO PRN (11:15)
[2021-08-29] MEDS ORDERED: NA PHOS,M-B/NA PHOS,DI-BA ENEMA 118ML PR PRN (11:15)
[2021-08-29] MEDS ORDERED: DIPHENHYDRAMINE 50MG/ML VIAL IV PRN (11:15)
[2021-08-29] MEDS ORDERED: ACETAMINOPHEN 325MG TABLET PO PRN (11:15)
[2021-08-29] MEDS ORDERED: MAGNESIUM/ALUMINUM HYDROXIDE/SIMETHICONE 30ML UDC PO PRN (11:15)
[2021-08-29] MEDS ORDERED: LORAZEPAM 0.5MG TABLET PO PRN (11:15)
[2021-08-29] MEDS ORDERED: DEXTROSE 50% WATER 50ML SYRINGE IV PRN (13:15)
[2021-08-29] MEDS: INSULIN LISPRO 100 UNITS/ML SUBCUT SCH ×3 (13:20→21:40)
[2021-08-29] MEDS: BLOOD SUGAR DIAGNOSTIC STRIP TEST SCH ×3 (13:30→21:40)
[2021-08-29 20:37] LABS: PROTHROMBIN TIME 11.1 sec (9.6-11.0)
[2021-08-29] MEDS: AMLODIPINE 5MG TABLET PO SCH (22:00)
[2021-08-29] MEDS: FAMOTIDINE 20MG TABLET PO SCH (22:38)
[2021-08-30] MEDS: DEXAMETHASONE 4MG/ML 1ML VIAL IV SCH ×4 (00:36→18:57)
[2021-08-30 05:24] LABS: BASOPHILS % 0.7 % (0.0-2.0); EOSINOPHILS % 0.2 % (0.0-5.0); HEMATOCRIT. 26.4 % (36.0-48.0); LYMPHOCYTES % 11.4 % (20.0-50.0); MEAN CORPUSCULAR HEMOGLOBIN 30.6 pg (28.0-32.0); MEAN CORPUSCULAR VOLUME 90.2 fL (81.0-99.0); MEAN PLATELET VOLUME 8.6 fl (7.4-10.4); MONOCYTES % 0.8 % (2.0-8.0); NEUTROPHILS % 86.9 % (40.0-76.0); PLATELET 252 x1000/uL (130-400); RED BLOOD CELL COUNT 2.93 mill/uL (4.2-5.4); RED CELL DISTRIBUTION WIDTH 14.2 % (11.6-14.6)
[2021-08-30 05:31] LABS: CHLORIDE 112 mEq/L (98-107)
[2021-08-30] MEDS: BLOOD SUGAR DIAGNOSTIC STRIP TEST SCH ×4 (07:54→20:18)
[2021-08-30] MEDS: AMLODIPINE 5MG TABLET PO SCH ×2 (08:02→20:18)
[2021-08-30] MEDS: INSULIN LISPRO 100 UNITS/ML SUBCUT SCH ×4 (08:29→20:42)
[2021-08-30] MEDS ORDERED: NALOXONE HCL 0.4MG/ML VIAL IV PRN (10:15)
[2021-08-30 10:46] VITALS: BP 159/76
[2021-08-30 12:00] VITALS: BP 160/82
[2021-08-30] MEDS: DEXT 5%/0.45% NACL 1000ML 1,000 ML IV SCH (14:30)
[2021-08-30 16:00] VITALS: BP 160/80
[2021-08-30 17:38] VITALS: BP 153/69
[2021-08-30 20:00] VITALS: BP 179/82
[2021-08-30] MEDS: FAMOTIDINE 20MG TABLET PO SCH (20:17)
[2021-08-30 22:26] LABS: CLARITY URINE CLOUDY (CLEAR); COLOR URINE YELLOW (YELLOW); KETONES URINE NEGATIVE (NEGATIVE); LEUKOCYTE ESTERASE URINE 2+ (NEGATIVE); NITRITE URINE NEGATIVE (NEGATIVE); OCCULT BLOOD URINE TRACE (NEGATIVE); PROTEIN URINE 3+ (NEGATIVE); SPECIFIC GRAVITY URINE 1.015 (1.005-1.030); UROBILINOGEN URINE 0.2 E.U./dL (0.2-1.0)
[2021-08-31] VITALS (7 sets, daily range): BP systolic 155–183; BP diastolic 64–91
[2021-08-31] MEDS: DEXAMETHASONE 4MG/ML 1ML VIAL IV SCH ×2 (00:01→05:17)
[2021-08-31] MEDS: CLONIDINE 0.1MG TABLET PO PRN ×2 (00:02→09:15)
[2021-08-31] MEDS: HYDRALAZINE HCL 25MG TABLET PO SCH ×3 (05:17→18:34)
[2021-08-31] MEDS: DEXT 5%/0.45% NACL 1000ML 1,000 ML IV SCH (06:30)
[2021-08-31] MEDS: BLOOD SUGAR DIAGNOSTIC STRIP TEST SCH ×3 (06:31→18:16)
[2021-08-31 08:10] LABS: BASOPHILS % 0.1 % (0.0-2.0); HEMATOCRIT. 23.9 % (36.0-48.0); HEMOGLOBIN. 8.4 g/dL (12.0-16.0); MEAN CORPUSCULAR HEMOGLOBIN 31.1 pg (28.0-32.0); MEAN CORPUSCULAR VOLUME 88.6 fL (81.0-99.0); MONOCYTES % 2.3 % (2.0-8.0); NEUTROPHILS % 84.6 % (40.0-76.0); PLATELET 238 x1000/uL (130-400); RED CELL DISTRIBUTION WIDTH 13.7 % (11.6-14.6)
[2021-08-31] MEDS: INSULIN LISPRO 100 UNITS/ML SUBCUT SCH ×2 (08:39→13:00)
[2021-08-31] MEDS: AMLODIPINE 5MG TABLET PO SCH (09:11)
[2021-08-31] MEDS ORDERED: CEFTRIAXONE 1 G PREMIX 50 ML IV SCH (10:45)
[2021-08-31] MEDS ORDERED: CEFTRIAXONE 1,000 MG in DEXTROSE 5% WATER 50 ML IV SCH (13:00)
[2021-08-31] MEDS ORDERED: DEXA2TAB PO (14:12)
[2021-08-31] MEDS ORDERED: INSULIN LISPRO 100 UNITS/ML SUBCUT SCH (17:50)
== END 2021-08-31 20:39 | disposition home health service (06) | DRG 551 ==
LOC: ER 08:25 → MICUSO 11:01 → EDBEDREQSVC 14:51 → 6EST 08-30 10:08
PROVIDERS: ADMIT Internal Medicine; ATTEND Internal Medicine
DX: M48.02 Spinal stenosis, cervical region (principal); G82.50 Quadriplegia, unspecified; G99.2 Myelopathy in diseases classified elsewhere; G95.20 Unspecified cord compression; R29.6 Repeated falls; E78.5 Hyperlipidemia, unspecified; D64.9 Anemia, unspecified; E11.22 Type 2 diabetes mellitus with diabetic chronic kidney disease; M53.2X7 Spinal instabilities, lumbosacral region; N18.9 Chronic kidney disease, unspecified; I08.0 Rheumatic disorders of both mitral and aortic valves; M54.16 Radiculopathy, lumbar region; M48.061 Spinal stenosis, lumbar region without neurogenic claudication; Z20.822 Contact with and (suspected) exposure to COVID-19; Z53.29 Procedure and treatment not carried out because of patient's decision for other reasons; I13.10 Hypertensive heart and chronic kidney disease without heart failure, with stage 1 through stage 4 chronic kidney disease, or unspecified chronic kidney disease; E78.00 Pure hypercholesterolemia, unspecified; Z79.899 Other long term (current) drug therapy; Z87.442 Personal history of urinary calculi
CPT/HCPCS: 36415; 71045; 72141; 72148; 80048; 80053; 81003; 82962; 83605; 83735; 84145; 84443; 84484; 85025; 86850; 86900; 87077; 87186; 87426; 93005; 93306; 93970; 97162; 99285; J0696; J1100; J1815; J7060

== ENCOUNTER 2022-03-22 15:11 | Inpatient (IN) | payer MEDICARE, MEDICAID ==
[~2022-03-22] VITALS: Ht 157.5 cm; Wt 81.6 kg
[~2022-03-22 15:11] MED LIST changes: +DEXA2TAB PO
[2022-03-22] MEDS ORDERED: MORPHINE SULFATE 4 MG/ML CPJ (NOT FOR IM USE) IV STA (16:58)
[2022-03-22] MEDS ORDERED: ACETAMINOPHEN 325MG TABLET PO STA (16:58)
[2022-03-22] MEDS ORDERED: SODIUM CHLORIDE 0.9% 1000ML BAG (SEPSIS BOLUS) IV ONE (17:00)
[2022-03-22] MEDS ORDERED: VANCOMYCIN 1G PREMIX 200 ML IV ONE (17:00)
[2022-03-22] MEDS ORDERED: PIPERACILLIN/TAZ 3.375G PREMIX 50 ML IV ONE (17:00)
[2022-03-22 18:53] LABS: HEMATOCRIT. 27.9 % (36.0-48.0); HEMOGLOBIN. 9.3 g/dL (12.0-16.0); MEAN CORPUSCULAR HEMOGLOBIN 29.2 pg (28.0-32.0); MEAN CORPUSCULAR VOLUME 87.3 fL (81.0-99.0); MEAN PLATELET VOLUME 8.3 fl (7.4-10.4); PLATELET 353 x1000/uL (130-400); RED CELL DISTRIBUTION WIDTH 16.1 % (11.6-14.6)
[2022-03-22 19:04] LABS: CHLORIDE 102 mEq/L (98-107)
[2022-03-22 19:30] LABS: CLARITY URINE CLOUDY (CLEAR); COLOR URINE YELLOW (YELLOW); KETONES URINE NEGATIVE (NEGATIVE); LEUKOCYTE ESTERASE URINE 1+ (NEGATIVE); NITRITE URINE NEGATIVE (NEGATIVE); OCCULT BLOOD URINE NEGATIVE (NEGATIVE); PH URINE 7.5 (4.5-8.0); PROTEIN URINE 2+ (NEGATIVE); UROBILINOGEN URINE 0.2 E.U./dL (0.2-1.0)
[2022-03-22 19:53] LABS: PLATELET ESTIMATE NORMAL
[2022-03-22] MEDS ORDERED: KETOROLAC 15MG/ML VIAL IV NR (20:30)
[2022-03-23] VITALS: BP 110/50
[2022-03-23] MEDS ORDERED: ONDANSETRON HCL 4MG/2ML INJ IV PRN (02:30)
[2022-03-23] MEDS ORDERED: DEXTROSE 50% WATER 50ML SYRINGE IV PRN ×2 (02:30)
[2022-03-23] MEDS: DEXT 5%/0.9% NACL 1,000 ML IV SCH ×2 (03:26→15:50)
[2022-03-23 04:00] VITALS: BP 120/39
[2022-03-23] MEDS: PIPERACILLIN/TAZOBACTAM 3.375 G in DEXTROSE 5% WATER 50 ML IV SCH ×3 (04:10→21:21)
[2022-03-23] MEDS: BLOOD SUGAR DIAGNOSTIC STRIP TEST SCH ×4 (06:31→21:21)
[2022-03-23] MEDS: INSULIN LISPRO 100 UNITS/ML SUBCUT SCH ×4 (07:50→21:00)
[2022-03-23] MEDS: PANTOPRAZOLE SODIUM 40 MG/VIAL IV SCH (09:17)
[2022-03-23 11:52] LABS: HEMATOCRIT. 22.9 % (36.0-48.0); HEMOGLOBIN. 7.5 g/dL (12.0-16.0); MEAN CORPUSCULAR HEMOGLOBIN 28.8 pg (28.0-32.0); MEAN PLATELET VOLUME 7.9 fl (7.4-10.4); PLATELET 283 x1000/uL (130-400); RED CELL DISTRIBUTION WIDTH 16.2 % (11.6-14.6)
[2022-03-23 11:57] LABS: CHLORIDE 107 mEq/L (98-107)
[2022-03-23 14:27] LABS: PLATELET ESTIMATE NORMAL
[2022-03-23] MEDS ORDERED: VANCOMYCIN 750MG PMX (XELLIA) 150 ML IV SCH (17:00)
[2022-03-23] MEDS ORDERED: SENNOSIDES 8.6MG TABLET PO PRN (19:00)
[2022-03-23] MEDS ORDERED: LACTULOSE 20G/30ML UDC PO NR (19:00)
[2022-03-23 20:00] VITALS: BP 141/47
[2022-03-24] VITALS (11 sets, daily range): BP systolic 142–168; BP diastolic 43–61
[2022-03-24 02:16] LABS: FOLIC ACID (FOLATE) SERUM 7.1 ng/mL (>5.38)
[2022-03-24] MEDS: DEXT 5%/0.9% NACL 1,000 ML IV SCH ×2 (05:10→17:39)
[2022-03-24 06:30] LABS: BASOPHILS % 0.2 % (0.0-2.0); EOSINOPHILS % 1.4 % (0.0-5.0); HEMATOCRIT. 21.8 % (36.0-48.0); HEMOGLOBIN. 7.2 g/dL (12.0-16.0); LYMPHOCYTES % 12.1 % (20.0-50.0); MEAN CORPUSCULAR VOLUME 88.5 fL (81.0-99.0); MEAN PLATELET VOLUME 7.9 fl (7.4-10.4); MONOCYTES % 6.1 % (2.0-8.0); NEUTROPHILS % 80.2 % (40.0-76.0); PLATELET 260 x1000/uL (130-400); RED BLOOD CELL COUNT 2.47 mill/uL (4.2-5.4); RED CELL DISTRIBUTION WIDTH 16.1 % (11.6-14.6)
[2022-03-24] MEDS: BLOOD SUGAR DIAGNOSTIC STRIP TEST SCH ×4 (06:33→21:32)
[2022-03-24 06:37] LABS: PROTHROMBIN TIME 10.7 sec (9.6-11.0)
[2022-03-24] MEDS: PIPERACILLIN/TAZOBACTAM 3.375 G in DEXTROSE 5% WATER 50 ML IV SCH ×3 (06:56→22:47)
[2022-03-24] MEDS: INSULIN LISPRO 100 UNITS/ML SUBCUT SCH ×4 (07:17→21:00)
[2022-03-24] MEDS: DOCUSATE SODIUM 250MG CAPSULE PO SCH (08:35)
[2022-03-24] MEDS: PANTOPRAZOLE SODIUM 40 MG/VIAL IV SCH (08:36)
[2022-03-24] MEDS ORDERED: LACTULOSE 20G/30ML UDC PO NR (13:00)
[2022-03-24] MEDS: CLONIDINE 0.1MG TABLET PO PRN (22:33)
[2022-03-25] VITALS: BP 159/55
[2022-03-25 04:00] VITALS: BP 156/49
[2022-03-25] MEDS: CLONIDINE 0.1MG TABLET PO PRN ×2 (04:49→13:29)
[2022-03-25 05:06] LABS: VANCOMYCIN TROUGH 13.6 ug/mL (5.0-10.0)
[2022-03-25] MEDS: PIPERACILLIN/TAZOBACTAM 3.375 G in DEXTROSE 5% WATER 50 ML IV SCH ×3 (05:40→21:15)
[2022-03-25] MEDS: DEXT 5%/0.9% NACL 1,000 ML IV SCH ×2 (05:44→21:10)
[2022-03-25] MEDS: BLOOD SUGAR DIAGNOSTIC STRIP TEST SCH ×4 (05:44→21:04)
[2022-03-25] MEDS ORDERED: VANCOMYCIN 750MG PMX (XELLIA) 150 ML IV SCH (06:00)
[2022-03-25 06:14] LABS: BASOPHILS % 0.6 % (0.0-2.0); EOSINOPHILS % 5.3 % (0.0-5.0); HEMATOCRIT. 26.8 % (36.0-48.0); LYMPHOCYTES % 14.7 % (20.0-50.0); MEAN CORPUSCULAR HEMOGLOBIN 28.3 pg (28.0-32.0); MEAN CORPUSCULAR VOLUME 88.3 fL (81.0-99.0); MONOCYTES % 6.1 % (2.0-8.0); NEUTROPHILS % 73.3 % (40.0-76.0); PLATELET 250 x1000/uL (130-400); RED BLOOD CELL COUNT 3.03 mill/uL (4.2-5.4); RED CELL DISTRIBUTION WIDTH 17.4 % (11.6-14.6)
[2022-03-25 06:28] LABS: HEMOGLOBIN. 8.6 g/dL (12.0-16.0)
[2022-03-25] MEDS: INSULIN LISPRO 100 UNITS/ML SUBCUT SCH ×4 (07:33→21:00)
[2022-03-25 08:00] VITALS: BP 165/47
[2022-03-25] MEDS: DOCUSATE SODIUM 250MG CAPSULE PO SCH (08:57)
[2022-03-25] MEDS: PANTOPRAZOLE SODIUM 40 MG/VIAL IV SCH (08:57)
[2022-03-25 12:30] VITALS: BP 165/56
[2022-03-25] MEDS ORDERED: DILT90TA2 PO (13:32)
[2022-03-25 16:30] VITALS: BP 163/51
[2022-03-25] MEDS: HYDRALAZINE 20MG/ML VIAL IV PRN (17:40)
[2022-03-25 20:00] VITALS: BP 122/49
[2022-03-26] VITALS: BP 143/50
[2022-03-26 04:00] VITALS: BP 145/47
[2022-03-26] MEDS: PIPERACILLIN/TAZOBACTAM 3.375 G in DEXTROSE 5% WATER 50 ML IV SCH ×3 (05:07→21:39)
[2022-03-26] MEDS: BLOOD SUGAR DIAGNOSTIC STRIP TEST SCH ×4 (05:58→21:39)
[2022-03-26] MEDS: INSULIN LISPRO 100 UNITS/ML SUBCUT SCH ×4 (07:11→21:42)
[2022-03-26] MEDS ORDERED: LIDOCAINE HCL 1% 30ML VIAL (10MG/ML) ONE (08:09)
[2022-03-26 08:30] VITALS: BP 178/86
[2022-03-26] MEDS: DOCUSATE SODIUM 250MG CAPSULE PO SCH (09:34)
[2022-03-26] MEDS: DEXT 5%/0.9% NACL 1,000 ML IV SCH (09:34)
[2022-03-26] MEDS: PANTOPRAZOLE SODIUM 40 MG/VIAL IV SCH (09:34)
[2022-03-26] MEDS: HYDRALAZINE 20MG/ML VIAL IV PRN (09:34)
[2022-03-26 09:50] LABS: BASOPHILS % 0.6 % (0.0-2.0); EOSINOPHILS % 5.7 % (0.0-5.0); HEMATOCRIT. 26.4 % (36.0-48.0); LYMPHOCYTES % 15.6 % (20.0-50.0); MEAN CORPUSCULAR HEMOGLOBIN 29.2 pg (28.0-32.0); MEAN CORPUSCULAR VOLUME 85.9 fL (81.0-99.0); MEAN PLATELET VOLUME 8.1 fl (7.4-10.4); MONOCYTES % 5.5 % (2.0-8.0); NEUTROPHILS % 72.6 % (40.0-76.0); PLATELET 264 x1000/uL (130-400); RED BLOOD CELL COUNT 3.07 mill/uL (4.2-5.4); RED CELL DISTRIBUTION WIDTH 17.2 % (11.6-14.6)
[2022-03-26 12:30] VITALS: BP 127/62
[2022-03-26 16:18] VITALS: BP 144/70
[2022-03-26 20:00] VITALS: BP 141/68
[2022-03-27] VITALS (7 sets, daily range): BP systolic 136–174; BP diastolic 48–62
[2022-03-27] MEDS: DEXT 5%/0.9% NACL 1,000 ML IV SCH ×2 (00:24→12:26)
[2022-03-27] MEDS: PIPERACILLIN/TAZOBACTAM 3.375 G in DEXTROSE 5% WATER 50 ML IV SCH ×3 (06:04→21:27)
[2022-03-27] MEDS: BLOOD SUGAR DIAGNOSTIC STRIP TEST SCH ×4 (06:53→20:41)
[2022-03-27] MEDS: INSULIN LISPRO 100 UNITS/ML SUBCUT SCH ×4 (06:54→20:41)
[2022-03-27] MEDS: DOCUSATE SODIUM 250MG CAPSULE PO SCH (09:12)
[2022-03-27] MEDS: PANTOPRAZOLE SODIUM 40 MG/VIAL IV SCH (09:12)
[2022-03-27] MEDS: HYDRALAZINE 20MG/ML VIAL IV PRN (09:12)
[2022-03-27] MEDS: ACETAMINOPHEN 650MG/20.3ML UDC PO PRN (10:33)
[2022-03-28] VITALS: BP 162/57
[2022-03-28] MEDS ORDERED: METOCLOPRAMIDE HCL 10MG/2ML VIAL IV SCH
[2022-03-28] MEDS: DEXT 5%/0.9% NACL 1,000 ML IV SCH ×2 (02:25→16:28)
[2022-03-28] MEDS: HYDRALAZINE 20MG/ML VIAL IV PRN (02:32)
[2022-03-28 04:00] VITALS: BP 158/63
[2022-03-28] MEDS: PIPERACILLIN/TAZOBACTAM 3.375 G in DEXTROSE 5% WATER 50 ML IV SCH ×3 (06:02→21:51)
[2022-03-28] MEDS: BLOOD SUGAR DIAGNOSTIC STRIP TEST SCH ×4 (06:23→21:05)
[2022-03-28 07:20] LABS: BASOPHILS % 0.9 % (0.0-2.0); EOSINOPHILS % 10.3 % (0.0-5.0); HEMATOCRIT. 26.1 % (36.0-48.0); HEMOGLOBIN. 8.6 g/dL (12.0-16.0); LYMPHOCYTES % 19.3 % (20.0-50.0); MEAN CORPUSCULAR HEMOGLOBIN 28.7 pg (28.0-32.0); MEAN PLATELET VOLUME 7.8 fl (7.4-10.4); MONOCYTES % 8.7 % (2.0-8.0); NEUTROPHILS % 60.8 % (40.0-76.0); PLATELET 274 x1000/uL (130-400); RED BLOOD CELL COUNT 3.01 mill/uL (4.2-5.4); RED CELL DISTRIBUTION WIDTH 17.4 % (11.6-14.6)
[2022-03-28] MEDS: INSULIN LISPRO 100 UNITS/ML SUBCUT SCH ×4 (07:50→21:00)
[2022-03-28 08:00] VITALS: BP 105/63
[2022-03-28] MEDS: PANTOPRAZOLE SODIUM 40 MG/VIAL IV SCH (08:26)
[2022-03-28] MEDS: DOCUSATE SODIUM 250MG CAPSULE PO SCH (08:26)
[2022-03-28 11:47] VITALS: BP 163/62
[2022-03-28 16:00] VITALS: BP 159/59
[2022-03-28 20:00] VITALS: BP 105/80
[2022-03-29] VITALS (7 sets, daily range): BP systolic 138–176; BP diastolic 45–68
[2022-03-29] MEDS: HYDRALAZINE 20MG/ML VIAL IV PRN ×2 (03:27→21:41)
[2022-03-29] MEDS: PIPERACILLIN/TAZOBACTAM 3.375 G in DEXTROSE 5% WATER 50 ML IV SCH ×3 (05:31→21:40)
[2022-03-29] MEDS: DEXT 5%/0.9% NACL 1,000 ML IV SCH ×2 (05:33→18:21)
[2022-03-29] MEDS: BLOOD SUGAR DIAGNOSTIC STRIP TEST SCH ×4 (06:28→20:38)
[2022-03-29 06:38] LABS: BASOPHILS % 0.7 % (0.0-2.0); HEMATOCRIT. 24.8 % (36.0-48.0); HEMOGLOBIN. 8.3 g/dL (12.0-16.0); LYMPHOCYTES % 18.1 % (20.0-50.0); MEAN CORPUSCULAR HEMOGLOBIN 28.7 pg (28.0-32.0); MEAN PLATELET VOLUME 7.8 fl (7.4-10.4); MONOCYTES % 7.6 % (2.0-8.0); NEUTROPHILS % 64.6 % (40.0-76.0); PLATELET 262 x1000/uL (130-400); RED BLOOD CELL COUNT 2.88 mill/uL (4.2-5.4); RED CELL DISTRIBUTION WIDTH 17.4 % (11.6-14.6)
[2022-03-29] MEDS: INSULIN LISPRO 100 UNITS/ML SUBCUT SCH ×4 (07:50→20:38)
[2022-03-29] MEDS: PANTOPRAZOLE SODIUM 40 MG/VIAL IV SCH (08:25)
[2022-03-29] MEDS: DOCUSATE SODIUM 250MG CAPSULE PO SCH (08:25)
[2022-03-29] MEDS ORDERED: POTASSIUM CHLORIDE 20MEQ TABLET SR PO NR (16:00)
[2022-03-30] VITALS: BP 129/77
[2022-03-30 04:00] VITALS: BP 141/49
[2022-03-30] MEDS: CEFTRIAXONE 1,000 MG in DEXTROSE 5% WATER 50 ML IV SCH (05:44)
[2022-03-30] MEDS: BLOOD SUGAR DIAGNOSTIC STRIP TEST SCH ×4 (07:27→20:33)
[2022-03-30 07:29] LABS: EOSINOPHILS % 10.9 % (0.0-5.0); HEMATOCRIT. 25.4 % (36.0-48.0); HEMOGLOBIN. 8.5 g/dL (12.0-16.0); LYMPHOCYTES % 21.6 % (20.0-50.0); MEAN CORPUSCULAR HEMOGLOBIN 29.3 pg (28.0-32.0); MEAN CORPUSCULAR VOLUME 86.9 fL (81.0-99.0); MEAN PLATELET VOLUME 7.6 fl (7.4-10.4); MONOCYTES % 7.9 % (2.0-8.0); NEUTROPHILS % 58.6 % (40.0-76.0); PLATELET 276 x1000/uL (130-400); RED BLOOD CELL COUNT 2.92 mill/uL (4.2-5.4); RED CELL DISTRIBUTION WIDTH 17.3 % (11.6-14.6)
[2022-03-30] MEDS: INSULIN LISPRO 100 UNITS/ML SUBCUT SCH ×4 (07:50→20:33)
[2022-03-30 08:00] VITALS: BP 137/50
[2022-03-30] MEDS: DEXT 5%/0.9% NACL 1,000 ML IV SCH ×2 (08:14→21:08)
[2022-03-30] MEDS: DOCUSATE SODIUM 250MG CAPSULE PO SCH (08:14)
[2022-03-30] MEDS: PANTOPRAZOLE SODIUM 40 MG/VIAL IV SCH (08:14)
[2022-03-30 11:41] VITALS: BP 142/62
[2022-03-30 15:29] VITALS: BP 130/63
[2022-03-30 19:41] VITALS: BP 167/64
[2022-03-30] MEDS: HYDRALAZINE 20MG/ML VIAL IV PRN (21:09)
[2022-03-31] VITALS: BP 154/50
[2022-03-31 04:10] VITALS: BP 138/51
[2022-03-31] MEDS: CEFTRIAXONE 1,000 MG in DEXTROSE 5% WATER 50 ML IV SCH (05:15)
[2022-03-31] MEDS: BLOOD SUGAR DIAGNOSTIC STRIP TEST SCH ×4 (06:32→20:29)
[2022-03-31 07:00] LABS: BASOPHILS % 0.8 % (0.0-2.0); EOSINOPHILS % 10.5 % (0.0-5.0); HEMATOCRIT. 23.8 % (36.0-48.0); HEMOGLOBIN. 7.9 g/dL (12.0-16.0); LYMPHOCYTES % 23.4 % (20.0-50.0); MEAN CORPUSCULAR HEMOGLOBIN 29.1 pg (28.0-32.0); MEAN CORPUSCULAR VOLUME 87.9 fL (81.0-99.0); MEAN PLATELET VOLUME 7.6 fl (7.4-10.4); MONOCYTES % 7.1 % (2.0-8.0); NEUTROPHILS % 58.2 % (40.0-76.0); PLATELET 271 x1000/uL (130-400); RED BLOOD CELL COUNT 2.71 mill/uL (4.2-5.4); RED CELL DISTRIBUTION WIDTH 17.3 % (11.6-14.6)
[2022-03-31] MEDS: INSULIN LISPRO 100 UNITS/ML SUBCUT SCH ×4 (07:50→20:29)
[2022-03-31] MEDS: DEXT 5%/0.9% NACL 1,000 ML IV SCH (09:04)
[2022-03-31] MEDS: PANTOPRAZOLE SODIUM 40 MG/VIAL IV SCH (09:04)
[2022-03-31] MEDS: DOCUSATE SODIUM 250MG CAPSULE PO SCH (09:04)
[2022-03-31 12:15] VITALS: BP 141/56
[2022-03-31 16:00] VITALS: BP 152/58
[2022-03-31 20:00] VITALS: BP 175/51
[2022-03-31] MEDS: HYDRALAZINE 20MG/ML VIAL IV PRN (20:54)
[2022-04-01] VITALS: BP 152/38
[2022-04-01] MEDS: ACETAMINOPHEN 650MG/20.3ML UDC PO PRN (02:27)
[2022-04-01 04:10] VITALS: BP 145/44
[2022-04-01] MEDS: CEFTRIAXONE 1,000 MG in DEXTROSE 5% WATER 50 ML IV SCH (05:19)
[2022-04-01] MEDS: BLOOD SUGAR DIAGNOSTIC STRIP TEST SCH ×4 (06:22→21:36)
[2022-04-01 06:57] LABS: BASOPHILS % 0.9 % (0.0-2.0); EOSINOPHILS % 9.6 % (0.0-5.0); HEMATOCRIT. 22.9 % (36.0-48.0); HEMOGLOBIN. 7.5 g/dL (12.0-16.0); LYMPHOCYTES % 36.3 % (20.0-50.0); MEAN CORPUSCULAR HEMOGLOBIN 28.6 pg (28.0-32.0); MEAN CORPUSCULAR VOLUME 87.4 fL (81.0-99.0); MEAN PLATELET VOLUME 7.5 fl (7.4-10.4); MONOCYTES % 8.6 % (2.0-8.0); NEUTROPHILS % 44.6 % (40.0-76.0); PLATELET 269 x1000/uL (130-400); RED BLOOD CELL COUNT 2.62 mill/uL (4.2-5.4); RED CELL DISTRIBUTION WIDTH 17.6 % (11.6-14.6)
[2022-04-01] MEDS: INSULIN LISPRO 100 UNITS/ML SUBCUT SCH ×4 (07:50→21:00)
[2022-04-01 08:00] VITALS: BP 155/50
[2022-04-01] MEDS: DOCUSATE SODIUM 250MG CAPSULE PO SCH (09:00)
[2022-04-01] MEDS: PANTOPRAZOLE SODIUM 40 MG/VIAL IV SCH (10:08)
[2022-04-01 12:00] VITALS: BP 177/62
[2022-04-01] MEDS: HYDRALAZINE 20MG/ML VIAL IV PRN ×2 (14:46→22:09)
[2022-04-01 16:00] VITALS: BP 152/57
[2022-04-01 20:00] VITALS: BP 167/59
[2022-04-02] VITALS: BP 153/55
[2022-04-02 04:00] VITALS: BP 162/60
[2022-04-02] MEDS: CEFTRIAXONE 1,000 MG in DEXTROSE 5% WATER 50 ML IV SCH (06:23)
[2022-04-02] MEDS: BLOOD SUGAR DIAGNOSTIC STRIP TEST SCH ×4 (07:04→21:00)
[2022-04-02] MEDS: INSULIN LISPRO 100 UNITS/ML SUBCUT SCH ×4 (07:04→21:00)
[2022-04-02] MEDS: DOCUSATE SODIUM 250MG CAPSULE PO SCH (09:14)
[2022-04-02] MEDS: PANTOPRAZOLE SODIUM 40 MG/VIAL IV SCH (09:14)
[2022-04-02 12:00] VITALS: BP 173/53
[2022-04-02 18:12] VITALS: BP 190/63
[2022-04-02] MEDS: HYDRALAZINE 20MG/ML VIAL IV PRN (18:32)
[2022-04-02 20:00] VITALS: BP 136/46
[2022-04-03] VITALS (8 sets, daily range): BP systolic 118–165; BP diastolic 44–61
[2022-04-03] MEDS: BLOOD SUGAR DIAGNOSTIC STRIP TEST SCH ×4 (06:36→20:40)
[2022-04-03] MEDS: CEFTRIAXONE 1,000 MG in DEXTROSE 5% WATER 50 ML IV SCH (06:36)
[2022-04-03] MEDS: INSULIN LISPRO 100 UNITS/ML SUBCUT SCH ×4 (07:50→20:40)
[2022-04-03] MEDS: DOCUSATE SODIUM 250MG CAPSULE PO SCH (09:03)
[2022-04-03] MEDS: PANTOPRAZOLE SODIUM 40 MG/VIAL IV SCH (09:03)
[2022-04-03 15:18] LABS: BASOPHILS % 0.6 % (0.0-2.0); EOSINOPHILS % 9.6 % (0.0-5.0); HEMATOCRIT. 23.3 % (36.0-48.0); HEMOGLOBIN. 7.7 g/dL (12.0-16.0); LYMPHOCYTES % 30.6 % (20.0-50.0); MEAN CORPUSCULAR HEMOGLOBIN 28.5 pg (28.0-32.0); MEAN CORPUSCULAR VOLUME 86.8 fL (81.0-99.0); MEAN PLATELET VOLUME 7.9 fl (7.4-10.4); MONOCYTES % 7.7 % (2.0-8.0); NEUTROPHILS % 51.5 % (40.0-76.0); PLATELET 279 x1000/uL (130-400); RED BLOOD CELL COUNT 2.69 mill/uL (4.2-5.4); RED CELL DISTRIBUTION WIDTH 17.7 % (11.6-14.6)
[2022-04-04] VITALS: BP 166/60
[2022-04-04] MEDS: HYDRALAZINE 20MG/ML VIAL IV PRN ×3 (01:04→20:54)
[2022-04-04 04:00] VITALS: BP 160/54
[2022-04-04] MEDS: CEFTRIAXONE 1,000 MG in DEXTROSE 5% WATER 50 ML IV SCH (05:00)
[2022-04-04] MEDS: BLOOD SUGAR DIAGNOSTIC STRIP TEST SCH ×4 (05:42→21:06)
[2022-04-04] MEDS: INSULIN LISPRO 100 UNITS/ML SUBCUT SCH ×4 (07:39→21:00)
[2022-04-04 08:00] VITALS: BP 167/44
[2022-04-04] MEDS: DOCUSATE SODIUM 250MG CAPSULE PO SCH (09:05)
[2022-04-04] MEDS: PANTOPRAZOLE SODIUM 40 MG/VIAL IV SCH (09:05)
[2022-04-04 12:00] VITALS: BP 153/49
[2022-04-04 16:00] VITALS: BP 143/62
[2022-04-04 20:00] VITALS: BP 171/52
[2022-04-05] VITALS: BP 164/52
[2022-04-05 04:00] VITALS: BP 160/52
[2022-04-05] MEDS: CEFTRIAXONE 1,000 MG in DEXTROSE 5% WATER 50 ML IV SCH (04:22)
[2022-04-05] MEDS: BLOOD SUGAR DIAGNOSTIC STRIP TEST SCH ×4 (07:20→21:01)
[2022-04-05] MEDS: INSULIN LISPRO 100 UNITS/ML SUBCUT SCH ×4 (07:50→21:00)
[2022-04-05 08:00] VITALS: BP 155/56
[2022-04-05] MEDS: PANTOPRAZOLE SODIUM 40 MG/VIAL IV SCH (09:21)
[2022-04-05] MEDS: DOCUSATE SODIUM 250MG CAPSULE PO SCH (09:21)
[2022-04-05 12:00] VITALS: BP 157/62
[2022-04-05 16:00] VITALS: BP 152/60
[2022-04-05 20:00] VITALS: BP 134/50
[2022-04-06] VITALS (7 sets, daily range): BP systolic 134–180; BP diastolic 45–56
[2022-04-06] MEDS: BLOOD SUGAR DIAGNOSTIC STRIP TEST SCH ×4 (06:57→21:12)
[2022-04-06] MEDS: INSULIN LISPRO 100 UNITS/ML SUBCUT SCH ×4 (07:50→21:00)
[2022-04-06] MEDS: PANTOPRAZOLE SODIUM 40 MG/VIAL IV SCH (08:57)
[2022-04-06] MEDS: DOCUSATE SODIUM 250MG CAPSULE PO SCH (08:57)
[2022-04-06] MEDS: HYDRALAZINE 20MG/ML VIAL IV PRN (16:48)
[2022-04-06] MEDS ORDERED: CLONIDINE 0.1MG TABLET PO NR (20:17)
== END 2022-04-06 23:00 | DRG 871 ==
LOC: ER 15:11 → 6WST 20:35 → ENRESERV 21:55
PROVIDERS: ADMIT Internal Medicine; ATTEND Internal Medicine
PROC: 30233N1 Transfusion of Nonautologous Red Blood Cells into Peripheral Vein, Percutaneous Approach (ICD-10-PCS; principal; 2022-03-24)
PROC: 02HV33Z Insertion of Infusion Device into Superior Vena Cava, Percutaneous Approach (ICD-10-PCS; 2022-03-26)
PROC: B548ZZA Ultrasonography of Superior Vena Cava, Guidance (ICD-10-PCS; 2022-03-26)
DX: A40.9 Streptococcal sepsis, unspecified (principal); L89.153 Pressure ulcer of sacral region, stage 3; E46 Unspecified protein-calorie malnutrition; E87.1 Hypo-osmolality and hyponatremia; N12 Tubulo-interstitial nephritis, not specified as acute or chronic; N39.0 Urinary tract infection, site not specified; N17.9 Acute kidney failure, unspecified; D64.9 Anemia, unspecified; D69.6 Thrombocytopenia, unspecified; Z20.822 Contact with and (suspected) exposure to COVID-19; E11.9 Type 2 diabetes mellitus without complications; I10 Essential (primary) hypertension; M48.02 Spinal stenosis, cervical region; E78.00 Pure hypercholesterolemia, unspecified; K59.00 Constipation, unspecified; K80.50 Calculus of bile duct without cholangitis or cholecystitis without obstruction; Z74.01 Bed confinement status; Z79.84 Long term (current) use of oral hypoglycemic drugs; Z68.32 Body mass index [BMI] 32.0-32.9, adult; Z79.899 Other long term (current) drug therapy
CPT/HCPCS: 36415; 36573; 74176; 74181; 76700; 80048; 80053; 80076; 80202; 81003; 82270; 82607; 82728; 82746; 82962; 83036; 83540; 83550; 83605; 84145; 85025; 85044; 86850; 86900; 86920; 87077; 87186; 87426; 93005; 93970; 93971; 97162; 97166; 97530; 99285; C1725; C1893; C9113; J0360; J0696; J1815; J1885; J2270; J2543; J3370; J3490; J7030; J7042; J7060; P9016

== ENCOUNTER 2022-08-03 22:08 | Inpatient (IN) | payer MEDICARE, MEDICAID ==
[~2022-08-03] VITALS: Ht 154.9 cm; Wt 57.8 kg
[~2022-08-03 22:08] MED LIST changes: +DILT90TA2 PO; -HYDR100T26 PO; -METF-414 PO
[2022-08-03] MEDS ORDERED: CALCIUM CHLORIDE 1GM/10ML SYR IV ONE (22:30)
[2022-08-03] MEDS ORDERED: DEXTROSE 50% WATER 50ML SYRINGE IV ONE (22:30)
[2022-08-03] MEDS ORDERED: ALBUTEROL (0.083%) 2.5MG/3ML NEB HHN ONE (22:30)
[2022-08-03] MEDS ORDERED: INSULIN REGULAR (HUMULIN R) 300UNITS/3ML VIAL IV ONE (22:30)
[2022-08-03] MEDS ORDERED: SODIUM BICARBONATE 8.4% 1 MEQ/ML 50ML SYR IV ONE (22:30)
[2022-08-03 23:09] LABS: BASOPHILS % 0.3 % (0.0-2.0); EOSINOPHILS % 0.7 % (0.0-5.0); HEMATOCRIT. 25.3 % (36.0-48.0); HEMOGLOBIN. 8.6 g/dL (12.0-16.0); LYMPHOCYTES % 19.2 % (20.0-50.0); MEAN CORPUSCULAR HEMOGLOBIN 30.8 pg (28.0-32.0); MEAN CORPUSCULAR VOLUME 90.9 fL (81.0-99.0); MEAN PLATELET VOLUME 8.6 fl (7.4-10.4); MONOCYTES % 6.2 % (2.0-8.0); NEUTROPHILS % 73.6 % (40.0-76.0); PLATELET 282 x1000/uL (130-400); RED BLOOD CELL COUNT 2.79 mill/uL (4.2-5.4); RED CELL DISTRIBUTION WIDTH 14.8 % (11.6-14.6)
[2022-08-03 23:18] LABS: PROTHROMBIN TIME 10.9 sec (9.6-11.0)
[2022-08-03 23:26] LABS: BG BASE EXCESS -8.1 mmol/L (-2.0-2.0); BG CARBOXYHEMOGLOBIN 0.3 % (0.5-1.5); BG DEOXYHEMOGLOBIN 3.1 % (0.0-5.0); BG FRACTION INSPIRED OXYGEN 21; BG HCO3 ACT 17.2 mmol/L (22.0-26.0); BG METHEMOGLOBIN 0.2 % (0.0-1.5); BG OXYGEN SATURATION 96.9 % (92.0-98.5); BG OXYHEMOGLOBIN 96.4 % (94.0-97.0); BG PCO2 33.9 mmHg (35.0-45.0); BG PH 7.322 (7.350-7.450); BG PO2 97.8 mmHg (75.0-100.0); BG SAMPLE SITE RIGHT BRACHIAL; BG TOTAL HEMOGLOBIN 9.4 g/dL (12.0-18.0); BG VENT MODE ROOM AIR
[2022-08-03 23:31] LABS: CHLORIDE 104 mEq/L (98-107)
[2022-08-03] MEDS ORDERED: SODIUM CHLORIDE 0.9% 1,000 ML IV ONE (23:45)
[2022-08-04] MEDS: DOPAMINE 400MG/250ML PREMIX 250 ML IV NR ×2 (02:35→13:48)
[2022-08-04] MEDS ORDERED: SODIUM CHLORIDE 0.9% 1000ML BAG (SEPSIS BOLUS) IV ONE (03:00)
[2022-08-04 14:04] LABS: CLARITY URINE CLOUDY (CLEAR); COLOR URINE YELLOW (YELLOW); KETONES URINE NEGATIVE (NEGATIVE); LEUKOCYTE ESTERASE URINE 3+ (NEGATIVE); NITRITE URINE NEGATIVE (NEGATIVE); OCCULT BLOOD URINE TRACE (NEGATIVE); PROTEIN URINE 2+ (NEGATIVE); SPECIFIC GRAVITY URINE 1.014 (1.005-1.030); UROBILINOGEN URINE 0.2 E.U./dL (0.2-1.0)
[2022-08-04 14:30] LABS: *AMPHETAMINES SCREEN URINE NEGATIVE (NEGATIVE); *BARBITURATES SCREEN URINE NEGATIVE (NEGATIVE); *BENZODIAZEPINES SCREEN URINE NEGATIVE (NEGATIVE); *COCAINE SCREEN URINE NEGATIVE (NEGATIVE); CANNABINOID URINE SCREEN NEGATIVE (NEGATIVE); METHADONE URINE SCREEN NEGATIVE (NEGATIVE); OPIATES URINE SCREEN NEGATIVE (NEGATIVE); PHENCYCLIDINE URINE SCREEN NEGATIVE (NEGATIVE)
[2022-08-04] MEDS ORDERED: ONDANSETRON HCL 4MG/2ML INJ IV PRN (14:45)
[2022-08-04] MEDS ORDERED: ACETAMINOPHEN 325MG TABLET PO PRN (14:45)
[2022-08-04] MEDS ORDERED: IPRATROPIUM/ALBUTEROL 0.5-3(2.5)MG/3ML NEB HHN PRN (14:45)
[2022-08-04] MEDS ORDERED: CEFTRIAXONE 1 G PREMIX 50 ML IV SCH (15:00)
[2022-08-04 17:39] LABS: HEMATOCRIT. 30.8 % (36.0-48.0); HEMOGLOBIN. 10.1 g/dL (12.0-16.0); MEAN CORPUSCULAR HEMOGLOBIN 30.1 pg (28.0-32.0); MEAN CORPUSCULAR VOLUME 91.7 fL (81.0-99.0); MEAN PLATELET VOLUME 8.4 fl (7.4-10.4); PLATELET 349 x1000/uL (130-400); RED BLOOD CELL COUNT 3.35 mill/uL (4.2-5.4); RED CELL DISTRIBUTION WIDTH 15.1 % (11.6-14.6)
[2022-08-04] MEDS: ENOXAPARIN 30MG/0.3ML SYR SUBCUT SCH (18:00)
[2022-08-04 21:24] LABS: PLATELET ESTIMATE NORMAL
[2022-08-04 23:35] LABS: CREATINE KINASE MB FRACTION 4.8 ng/mL (0.5-3.6)
[2022-08-04 23:38] VITALS: BP 156/81
[2022-08-04] MEDS ORDERED: DEXTROSE 50% WATER 50ML SYRINGE IV PRN (23:45)
[2022-08-04 23:47] VITALS: BP 151/65
[2022-08-05] VITALS (70 sets, daily range): BP systolic 64–180; BP diastolic 22–137
[2022-08-05 04:58] LABS: HEMATOCRIT. 26.4 % (36.0-48.0); HEMOGLOBIN. 9.1 g/dL (12.0-16.0); MEAN CORPUSCULAR HEMOGLOBIN 30.6 pg (28.0-32.0); MEAN CORPUSCULAR VOLUME 89.4 fL (81.0-99.0); MEAN PLATELET VOLUME 8.5 fl (7.4-10.4); PLATELET 316 x1000/uL (130-400); RED BLOOD CELL COUNT 2.96 mill/uL (4.2-5.4); RED CELL DISTRIBUTION WIDTH 14.5 % (11.6-14.6)
[2022-08-05 05:16] LABS: CHLORIDE 104 mEq/L (98-107)
[2022-08-05 05:32] LABS: CREATINE KINASE MB FRACTION 3.7 ng/mL (0.5-3.6)
[2022-08-05] MEDS: BLOOD SUGAR DIAGNOSTIC STRIP TEST SCH ×4 (06:24→20:41)
[2022-08-05] MEDS: INSULIN LISPRO 100 UNITS/ML SUBCUT SCH ×4 (06:29→20:41)
[2022-08-05 10:18] LABS: PLATELET ESTIMATE NORMAL
[2022-08-05] MEDS: CEFTRIAXONE 1,000 MG in DEXTROSE 5% WATER 50 ML IV SCH (15:54)
[2022-08-05] MEDS: ENOXAPARIN 30MG/0.3ML SYR SUBCUT SCH (17:26)
[2022-08-06] VITALS (19 sets, daily range): BP systolic 114–152; BP diastolic 44–108
[2022-08-06] MEDS: BLOOD SUGAR DIAGNOSTIC STRIP TEST SCH ×4 (05:48→21:43)
[2022-08-06] MEDS: INSULIN LISPRO 100 UNITS/ML SUBCUT SCH ×4 (05:49→21:00)
[2022-08-06] MEDS: CEFTRIAXONE 1,000 MG in DEXTROSE 5% WATER 50 ML IV SCH (15:49)
[2022-08-06] MEDS: ENOXAPARIN 30MG/0.3ML SYR SUBCUT SCH (18:28)
[2022-08-07] VITALS: BP 156/62
[2022-08-07 04:00] VITALS: BP 164/68
[2022-08-07] MEDS: BLOOD SUGAR DIAGNOSTIC STRIP TEST SCH ×2 (06:47→11:40)
[2022-08-07] MEDS: INSULIN LISPRO 100 UNITS/ML SUBCUT SCH ×2 (06:47→11:53)
[2022-08-07] MEDS ORDERED: CLONIDINE 0.1MG TABLET PO PRN (07:30)
[2022-08-07 08:00] VITALS: BP 164/63
[2022-08-07 12:12] VITALS: BP 111/46
[2022-08-07] MEDS ORDERED: NIFEDIPINE XL 30MG TAB PO SCH (14:00)
[2022-08-07] MEDS: CEFTRIAXONE 1,000 MG in DEXTROSE 5% WATER 50 ML IV SCH (14:52)
[2022-08-07 15:38] VITALS: BP_SYST 112; BP_DIAS 52; BP_DIAS 60
[2022-08-07 15:50] VITALS: BP 145/44
== END 2022-08-07 18:08 | disposition home or self-care (01) | DRG 308 ==
LOC: ER 22:08 → MICUSO 08-04 01:57 → MICUNO 08-04 23:30 → 7EST 08-06 11:02
PROVIDERS: ADMIT Internal Medicine; ATTEND Internal Medicine
DX: R00.1 Bradycardia, unspecified (principal); E43 Unspecified severe protein-calorie malnutrition; N39.0 Urinary tract infection, site not specified; I12.9 Hypertensive chronic kidney disease with stage 1 through stage 4 chronic kidney disease, or unspecified chronic kidney disease; E11.22 Type 2 diabetes mellitus with diabetic chronic kidney disease; N18.9 Chronic kidney disease, unspecified; E87.5 Hyperkalemia; E78.5 Hyperlipidemia, unspecified; D63.1 Anemia in chronic kidney disease; T46.1X5A Adverse effect of calcium-channel blockers, initial encounter; Y92.89 Other specified places as the place of occurrence of the external cause
CPT/HCPCS: 36415; 36600; 71045; 76770; 80048; 80053; 80305; 81003; 82375; 82553; 82805; 82962; 83036; 83605; 83880; 84484; 85025; 86850; 86900; 87426; 93005; 93306; 99291; C9803; J0696; J1265; J1650; J1815; J3490; J7030; J7060

== ENCOUNTER 2022-10-02 06:02 | Inpatient (IN) | payer MEDICARE, MEDICAID ==
[~2022-10-02] VITALS: Ht 152.4 cm; Wt 66.7 kg
[~2022-10-02 06:02] MED LIST changes: -DILT90TA2 PO; -LOSA100T3 PO; +LOSA100T4 PO
[2022-10-02 06:32] LABS: BASOPHILS % 0.4 % (0.0-2.0); EOSINOPHILS % 1.8 % (0.0-5.0); HEMATOCRIT. 25.1 % (36.0-48.0); HEMOGLOBIN. 8.2 g/dL (12.0-16.0); MEAN CORPUSCULAR VOLUME 94.9 fL (81.0-99.0); MEAN PLATELET VOLUME 7.6 fl (7.4-10.4); MONOCYTES % 5.4 % (2.0-8.0); NEUTROPHILS % 82.4 % (40.0-76.0); PLATELET 283 x1000/uL (130-400); RED BLOOD CELL COUNT 2.65 mill/uL (4.2-5.4); RED CELL DISTRIBUTION WIDTH 15.6 % (11.6-14.6)
[2022-10-02 06:45] LABS: CHLORIDE 106 mEq/L (98-107)
[2022-10-02] MEDS ORDERED: NALOXONE HCL 0.4MG/ML VIAL IV PRN (14:45)
[2022-10-02] MEDS: MORPHINE SULFATE 2 MG/ML CPJ (NOT FOR IM USE) IV PRN ×2 (14:49→19:34)
[2022-10-02] MEDS ORDERED: IPRATROPIUM/ALBUTEROL 0.5-3(2.5)MG/3ML NEB HHN SCH (17:00)
[2022-10-02] MEDS ORDERED: ONDANSETRON HCL 4MG/2ML INJ IV PRN (17:00)
[2022-10-02] MEDS ORDERED: HYDRALAZINE 20MG/ML VIAL IV PRN (17:30)
[2022-10-02] MEDS ORDERED: LEVOFLOXACIN 500MG PREMIX 100 ML IV NR (18:00)
[2022-10-02] MEDS ORDERED: DEXTROSE 50% WATER 50ML SYRINGE IV PRN (18:30)
[2022-10-02] MEDS: INSULIN LISPRO 100 UNITS/ML SUBCUT SCH (21:00)
[2022-10-02] MEDS: BLOOD SUGAR DIAGNOSTIC STRIP TEST SCH (21:32)
[2022-10-02 22:11] LABS: CREATINE KINASE MB FRACTION 1.8 ng/mL (0.5-3.6)
[2022-10-03 00:24] VITALS: BP 145/53
[2022-10-03] MEDS: BLOOD SUGAR DIAGNOSTIC STRIP TEST SCH ×4 (06:39→21:59)
[2022-10-03] MEDS: INSULIN LISPRO 100 UNITS/ML SUBCUT SCH ×4 (08:10→22:03)
[2022-10-03 08:16] VITALS: BP 147/49
[2022-10-03 08:22] LABS: CREATINE KINASE 59 IU/L (26-192); CREATINE KINASE MB FRACTION < 1.0 ng/mL (0.5-3.6)
[2022-10-03 09:08] LABS: BASOPHILS % 0.6 % (0.0-2.0); EOSINOPHILS % 1.3 % (0.0-5.0); HEMATOCRIT. 21.8 % (36.0-48.0); HEMOGLOBIN. 7.2 g/dL (12.0-16.0); LYMPHOCYTES % 20.1 % (20.0-50.0); MEAN CORPUSCULAR HEMOGLOBIN 30.9 pg (28.0-32.0); MEAN CORPUSCULAR VOLUME 93.5 fL (81.0-99.0); MEAN PLATELET VOLUME 8.3 fl (7.4-10.4); MONOCYTES % 8.6 % (2.0-8.0); NEUTROPHILS % 69.4 % (40.0-76.0); PLATELET 247 x1000/uL (130-400); RED BLOOD CELL COUNT 2.33 mill/uL (4.2-5.4); RED CELL DISTRIBUTION WIDTH 15.3 % (11.6-14.6)
[2022-10-03 09:33] LABS: CHLORIDE 112 mEq/L (98-107)
[2022-10-03] MEDS: IPRATROPIUM BROMIDE (0.02%) 0.5MG/2.5ML NEB HHN SCH ×4 (10:05→20:21)
[2022-10-03] MEDS: ALBUTEROL (0.083%) 2.5MG/3ML NEB HHN SCH ×4 (10:05→20:21)
[2022-10-03 12:20] VITALS: BP 125/42
[2022-10-03 16:00] VITALS: BP 133/43
[2022-10-03] MEDS: LEVOFLOXACIN 250MG PREMIX 50 ML IV SCH (18:14)
[2022-10-03 20:00] VITALS: BP 142/60
[2022-10-04] VITALS (8 sets, daily range): BP systolic 118–152; BP diastolic 46–94
[2022-10-04] MEDS: IPRATROPIUM BROMIDE (0.02%) 0.5MG/2.5ML NEB HHN SCH ×6 (00:55→20:41)
[2022-10-04] MEDS: ALBUTEROL (0.083%) 2.5MG/3ML NEB HHN SCH ×6 (00:55→20:41)
[2022-10-04] MEDS: BLOOD SUGAR DIAGNOSTIC STRIP TEST SCH ×4 (07:37→20:43)
[2022-10-04] MEDS: INSULIN LISPRO 100 UNITS/ML SUBCUT SCH ×4 (07:38→20:43)
[2022-10-04 10:30] LABS: BASOPHILS % 0.3 % (0.0-2.0); LYMPHOCYTES % 25.8 % (20.0-50.0); MEAN CORPUSCULAR HEMOGLOBIN 31.3 pg (28.0-32.0); MEAN CORPUSCULAR VOLUME 94.1 fL (81.0-99.0); MEAN PLATELET VOLUME 7.8 fl (7.4-10.4); MONOCYTES % 8.7 % (2.0-8.0); NEUTROPHILS % 64.2 % (40.0-76.0); PLATELET 228 x1000/uL (130-400); RED BLOOD CELL COUNT 2.18 mill/uL (4.2-5.4); RED CELL DISTRIBUTION WIDTH 15.3 % (11.6-14.6)
[2022-10-04 10:43] LABS: HEMATOCRIT. 20.5 % (36.0-48.0); HEMOGLOBIN. 6.8 g/dL (12.0-16.0)
[2022-10-04 10:56] LABS: CHLORIDE 112 mEq/L (98-107)
[2022-10-04] MEDS ORDERED: POLYMYXIN B SULFATE 500000 UNITS/VIAL ONE (15:40)
[2022-10-04] MEDS ORDERED: ROPIVACAINE HCL 1% 20 ML VIAL EPI ONE (15:40)
[2022-10-04] MEDS ORDERED: VANCOMYCIN HCL 1 GM/VIAL ONE (15:40)
[2022-10-04] MEDS ORDERED: BACITRACIN 15GM TUBE TOP ONE (15:41)
[2022-10-04] MEDS ORDERED: KETOROLAC 30MG/ML VIAL ONE (15:41)
[2022-10-04] MEDS ORDERED: MORPHINE SULFATE 10 MG/ML CPJ ONE (15:41)
[2022-10-04] MEDS ORDERED: EPINEPHRINE 1:1000 1 MG/ML AMP ONE (15:42)
[2022-10-04] MEDS ORDERED: LIDOCAINE HCL/EPINEPHRINE 1%-EPI 1:100,000 20 ML VIAL ONE (15:42)
[2022-10-04 20:43] LABS: HEMATOCRIT 25.7 % (36.0-48.0); HEMOGLOBIN 8.6 g/dL (12.0-16.0)
[2022-10-04] MEDS: LEVOFLOXACIN 250MG PREMIX 50 ML IV SCH (21:38)
[2022-10-05] VITALS (9 sets, daily range): BP systolic 129–180; BP diastolic 56–62
[2022-10-05] MEDS: ALBUTEROL (0.083%) 2.5MG/3ML NEB HHN SCH ×6 (00:50→23:25)
[2022-10-05] MEDS: IPRATROPIUM BROMIDE (0.02%) 0.5MG/2.5ML NEB HHN SCH ×6 (00:50→23:24)
[2022-10-05] MEDS ORDERED: CEFAZOLIN 1000MG PREMIX 50 ML IV SCH ×3 (02:00→20:00)
[2022-10-05] MEDS: BLOOD SUGAR DIAGNOSTIC STRIP TEST SCH ×4 (06:42→21:00)
[2022-10-05] MEDS: INSULIN LISPRO 100 UNITS/ML SUBCUT SCH ×4 (07:28→21:00)
[2022-10-05 07:57] LABS: BASOPHILS % 0.5 % (0.0-2.0); EOSINOPHILS % 1.7 % (0.0-5.0); HEMATOCRIT. 26.3 % (36.0-48.0); HEMOGLOBIN. 8.8 g/dL (12.0-16.0); MEAN CORPUSCULAR HEMOGLOBIN 31.2 pg (28.0-32.0); MEAN CORPUSCULAR VOLUME 92.6 fL (81.0-99.0); MEAN PLATELET VOLUME 8.4 fl (7.4-10.4); MONOCYTES % 10.3 % (2.0-8.0); NEUTROPHILS % 71.5 % (40.0-76.0); PLATELET 223 x1000/uL (130-400); RED BLOOD CELL COUNT 2.84 mill/uL (4.2-5.4); RED CELL DISTRIBUTION WIDTH 15.7 % (11.6-14.6)
[2022-10-05] MEDS ORDERED: POLYMYXIN B SULFATE 500000 UNITS/VIAL ONE ×2 (11:17→15:06)
[2022-10-05] MEDS ORDERED: LIDOCAINE HCL 1%/EPI 1:200,000 30 ML VIAL ONE (11:17)
[2022-10-05] MEDS ORDERED: VANCOMYCIN HCL 1 GM/VIAL ONE ×2 (11:18→14:47)
[2022-10-05] MEDS ORDERED: TRANEXAMIC ACID 1,000 MG/10 ML IV ONE (15:00)
[2022-10-05] MEDS ORDERED: TRANEXAMIC ACID 1,000 MG in SODIUM CHLORIDE 0.9% 100 ML IV NR ×4 (16:00)
[2022-10-05] MEDS ORDERED: KETOROLAC 30MG/ML VIAL ONE (17:15)
[2022-10-05] MEDS ORDERED: ROPIVACAINE HCL 1% 20 ML VIAL EPI ONE (17:15)
[2022-10-05] MEDS ORDERED: EPINEPHRINE 1:1000 1 MG/ML AMP ONE (17:16)
[2022-10-05 17:18] LABS: HEMOGLOBIN 10.5 g/dL (12.0-16.0)
[2022-10-05] MEDS ORDERED: ONDANSETRON HCL 4MG/2ML INJ ONE (17:34)
[2022-10-05] MEDS ORDERED: DEXAMETHASONE 4MG/ML 1ML VIAL ONE (17:34)
[2022-10-05] MEDS ORDERED: ROCURONIUM BROMIDE 10MG/ML VIAL 5ML IV ONE (17:34)
[2022-10-05] MEDS ORDERED: SUCCINYLCHOLINE CHLORIDE 200MG/10ML IV ONE (17:34)
[2022-10-05] MEDS ORDERED: NEOSTIGMINE METHYLSULFATE 1MG/ML 10 ML VIAL ONE ×2 (17:34→19:17)
[2022-10-05] MEDS ORDERED: ETOMIDATE 2MG/ML 10ML VIAL IV ONE (17:34)
[2022-10-05] MEDS ORDERED: GLYCOPYRROLATE 0.2 MG/ML 2ML VIAL ONE ×2 (17:35→19:16)
[2022-10-05] MEDS ORDERED: MIDAZOLAM HCL 2 MG/2 ML VIAL ONE (17:35)
[2022-10-05] MEDS ORDERED: FENTANYL CITRATE/PF 50MCG/ML 2ML VIAL ONE (17:35)
[2022-10-05] MEDS: LEVOFLOXACIN 250MG PREMIX 50 ML IV SCH ×2 (18:00→21:23)
[2022-10-05] MEDS ORDERED: MORPHINE SULFATE/PF 1MG/ML 10ML AMP ONE (18:12)
[2022-10-05] MEDS ORDERED: SKIN ADHESIVE 0.7 GM EA TOP ONE (19:02)
[2022-10-05] MEDS ORDERED: HYDROMORPHONE HCL/PF 2MG/ML CPJ IV PRN (19:15)
[2022-10-05] MEDS ORDERED: FENTANYL CITRATE/PF 50MCG/ML 2ML VIAL IV PRN (19:15)
[2022-10-05] MEDS ORDERED: ATROPINE SULFATE 1MG/10ML SYR IV PRN (22:15)
[2022-10-06] VITALS (8 sets, daily range): BP systolic 128–158; BP diastolic 42–57
[2022-10-06] MEDS: IPRATROPIUM BROMIDE (0.02%) 0.5MG/2.5ML NEB HHN SCH ×5 (02:30→21:34)
[2022-10-06] MEDS: ALBUTEROL (0.083%) 2.5MG/3ML NEB HHN SCH ×5 (02:30→21:34)
[2022-10-06] MEDS: CEFAZOLIN 1000MG PREMIX 50 ML IV SCH ×2 (03:26→10:00)
[2022-10-06] MEDS: BLOOD SUGAR DIAGNOSTIC STRIP TEST SCH ×4 (06:46→21:00)
[2022-10-06] MEDS: INSULIN LISPRO 100 UNITS/ML SUBCUT SCH ×4 (08:10→21:00)
[2022-10-06 08:20] LABS: HEMATOCRIT 28.4 % (36.0-48.0); HEMOGLOBIN 9.9 g/dL (12.0-16.0); MEAN CORPUSCULAR HEMOGLOBIN 31.9 pg (28.0-32.0); MEAN CORPUSCULAR VOLUME 92.1 fL (81.0-99.0); PLATELET 204 x1000/uL (130-400); RED BLOOD CELL COUNT 3.09 mill/uL (4.2-5.4); RED CELL DISTRIBUTION WIDTH 16.6 % (11.6-14.6)
[2022-10-06] MEDS ORDERED: MAGNESIUM 1 G PREMIX 100 ML IV NR (12:00)
[2022-10-06] MEDS: ACETAMINOPHEN 325MG TABLET PO PRN (12:56)
[2022-10-06] MEDS: LEVOFLOXACIN 250MG PREMIX 50 ML IV SCH (21:27)
[2022-10-07] VITALS: BP 147/52
[2022-10-07] MEDS: ALBUTEROL (0.083%) 2.5MG/3ML NEB HHN SCH ×7 (00:33→23:42)
[2022-10-07] MEDS: IPRATROPIUM BROMIDE (0.02%) 0.5MG/2.5ML NEB HHN SCH ×7 (00:33→23:42)
[2022-10-07] MEDS: CEFAZOLIN 1000MG PREMIX 50 ML IV SCH ×3 (01:45→17:42)
[2022-10-07 04:00] VITALS: BP 136/52
[2022-10-07] MEDS: BLOOD SUGAR DIAGNOSTIC STRIP TEST SCH ×4 (06:51→21:41)
[2022-10-07] MEDS: INSULIN LISPRO 100 UNITS/ML SUBCUT SCH ×4 (08:04→21:42)
[2022-10-07 09:38] VITALS: BP 135/46
[2022-10-07 12:12] VITALS: BP 135/43
[2022-10-07 16:01] VITALS: BP 103/49
[2022-10-07 20:00] VITALS: BP 151/50
[2022-10-08] VITALS: BP 152/46
[2022-10-08 04:00] VITALS: BP 139/43
[2022-10-08] MEDS: BLOOD SUGAR DIAGNOSTIC STRIP TEST SCH ×4 (06:44→21:58)
[2022-10-08 06:56] LABS: BASOPHILS % 0.4 % (0.0-2.0); EOSINOPHILS % 2.8 % (0.0-5.0); HEMATOCRIT. 27.8 % (36.0-48.0); HEMOGLOBIN. 9.3 g/dL (12.0-16.0); LYMPHOCYTES % 15.9 % (20.0-50.0); MEAN CORPUSCULAR HEMOGLOBIN 30.6 pg (28.0-32.0); MEAN PLATELET VOLUME 8.4 fl (7.4-10.4); MONOCYTES % 10.6 % (2.0-8.0); NEUTROPHILS % 70.3 % (40.0-76.0); PLATELET 222 x1000/uL (130-400); RED BLOOD CELL COUNT 3.05 mill/uL (4.2-5.4); RED CELL DISTRIBUTION WIDTH 15.9 % (11.6-14.6)
[2022-10-08] MEDS: INSULIN LISPRO 100 UNITS/ML SUBCUT SCH ×4 (08:10→21:58)
[2022-10-08 08:21] VITALS: BP 119/41
[2022-10-08 12:17] VITALS: BP 114/36
[2022-10-08 16:01] VITALS: BP 135/35
[2022-10-08 20:00] VITALS: BP 156/56
[2022-10-09] VITALS: BP 153/51
[2022-10-09 03:22] LABS: CLARITY URINE CLEAR (CLEAR); COLOR URINE YELLOW (YELLOW); KETONES URINE NEGATIVE (NEGATIVE); LEUKOCYTE ESTERASE URINE NEGATIVE (NEGATIVE); NITRITE URINE NEGATIVE (NEGATIVE); OCCULT BLOOD URINE TRACE (NEGATIVE); PROTEIN URINE 3+ (NEGATIVE); SPECIFIC GRAVITY URINE 1.015 (1.005-1.030); UROBILINOGEN URINE 0.2 E.U./dL (0.2-1.0)
[2022-10-09 04:00] VITALS: BP 149/51
[2022-10-09] MEDS: ACETAMINOPHEN 325MG TABLET PO PRN ×2 (04:06→23:48)
[2022-10-09] MEDS: BLOOD SUGAR DIAGNOSTIC STRIP TEST SCH ×4 (06:43→21:21)
[2022-10-09 08:00] VITALS: BP 151/58
[2022-10-09] MEDS: INSULIN LISPRO 100 UNITS/ML SUBCUT SCH ×4 (08:10→21:00)
[2022-10-09 12:00] VITALS: BP 139/65
[2022-10-09] MEDS ORDERED: LEVOFLOXACIN 750MG PREMIX 150 ML IV NR (14:00)
[2022-10-09 15:52] LABS: *AMPHETAMINES SCREEN URINE NEGATIVE (NEGATIVE); *BARBITURATES SCREEN URINE NEGATIVE (NEGATIVE); *BENZODIAZEPINES SCREEN URINE PRESUMTIVE POSITIVE (NEGATIVE); *COCAINE SCREEN URINE NEGATIVE (NEGATIVE); CANNABINOID URINE SCREEN NEGATIVE (NEGATIVE); METHADONE URINE SCREEN NEGATIVE (NEGATIVE); OPIATES URINE SCREEN PRESUMTIVE POSITIVE (NEGATIVE); PHENCYCLIDINE URINE SCREEN NEGATIVE (NEGATIVE)
[2022-10-09 16:00] VITALS: BP 133/64
[2022-10-09 16:33] LABS: CHLORIDE 111 mEq/L (98-107)
[2022-10-09 16:37] LABS: BASOPHILS % 0.5 % (0.0-2.0); EOSINOPHILS % 4.4 % (0.0-5.0); HEMATOCRIT. 30.1 % (36.0-48.0); HEMOGLOBIN. 9.5 g/dL (12.0-16.0); LYMPHOCYTES % 11.1 % (20.0-50.0); MEAN CORPUSCULAR HEMOGLOBIN 29.6 pg (28.0-32.0); MEAN CORPUSCULAR VOLUME 93.3 fL (81.0-99.0); MONOCYTES % 7.6 % (2.0-8.0); NEUTROPHILS % 76.4 % (40.0-76.0); RED BLOOD CELL COUNT 3.23 mill/uL (4.2-5.4); RED CELL DISTRIBUTION WIDTH 15.7 % (11.6-14.6)
[2022-10-09 16:48] LABS: MEAN PLATELET VOLUME 9.1 fl (7.4-10.4); PLATELET 163 x1000/uL (130-400)
[2022-10-09 20:00] VITALS: BP 142/51
[2022-10-10 00:04] VITALS: BP 146/56
[2022-10-10 04:00] VITALS: BP 146/50
[2022-10-10] MEDS: BLOOD SUGAR DIAGNOSTIC STRIP TEST SCH ×2 (06:08→12:38)
[2022-10-10] MEDS: INSULIN LISPRO 100 UNITS/ML SUBCUT SCH ×2 (06:09→12:38)
[2022-10-10 08:00] VITALS: BP 155/56
[2022-10-10 11:06] VITALS: BP 145/56
[2022-10-10 12:00] VITALS: BP 151/54
[2022-10-10] MEDS ORDERED: LEVOFLOXACIN 250MG TABLET PO SCH (12:00)
[2022-10-11] MEDS ORDERED: LEVOFLOXACIN 500MG PREMIX 100 ML IV SCH (11:00)
[2022-10-11] MEDS ORDERED: LEVOFLOXACIN 500MG TABLET PO SCH (11:00)
== END 2022-10-10 14:59 | DRG 522 ==
LOC: ER 06:02 → MICUSO 08:57 → EDBEDREQ 09:03 → EDBEDREQTM 09:03 → 7WST 23:04
PROVIDERS: ADMIT Internal Medicine; ATTEND Internal Medicine
PROC: 30233N1 Transfusion of Nonautologous Red Blood Cells into Peripheral Vein, Percutaneous Approach (ICD-10-PCS; 2022-10-04)
PROC: 0SRR0JA Replacement of Right Hip Joint, Femoral Surface with Synthetic Substitute, Uncemented, Open Approach (ICD-10-PCS; principal; 2022-10-05)
DX: S72.001A Fracture of unspecified part of neck of right femur, initial encounter for closed fracture (principal); I31.39 Other pericardial effusion (noninflammatory); E78.5 Hyperlipidemia, unspecified; I12.9 Hypertensive chronic kidney disease with stage 1 through stage 4 chronic kidney disease, or unspecified chronic kidney disease; N18.9 Chronic kidney disease, unspecified; D63.1 Anemia in chronic kidney disease; E11.22 Type 2 diabetes mellitus with diabetic chronic kidney disease; Z20.822 Contact with and (suspected) exposure to COVID-19; G89.29 Other chronic pain; W18.30XA Fall on same level, unspecified, initial encounter; Z79.899 Other long term (current) drug therapy; Y93.89 Activity, other specified; Y92.89 Other specified places as the place of occurrence of the external cause; Y99.8 Other external cause status
CPT/HCPCS: 36415; 71045; 72170; 72192; 73700; 80048; 80053; 80305; 81003; 82550; 82553; 82962; 83036; 83735; 83880; 84145; 84484; 85014; 85018; 85025; 85027; 86850; 86900; 86920; 87426; 88311; 93005; 93306; 93970; 94640; 97162; 97166; 97530; 97535; 99285; J0330; J0360; J0690; J1100; J1815; J1885; J1956; J2250; J2270; J2274; J2405; J2710; J2795; J3010; J3370; J3475; J3490; J7050; P9016; C1776